=== PATIENT | male | born 1990 | race Caucasian/White ===

== ENCOUNTER 2022-01-25 12:56 | Outpatient (REF) | payer OTHER, SELFPAY ==
--- NOTE | ~2022-01-25 | XR_ITS ---
EXAMINATION: XR KNEE, LEFT CLINICAL INFORMATION: Pain. Injury. Rule out fracture or effusion. COMPARISON: None TECHNIQUE: Four views of the left knee. FINDINGS: Bones and soft tissues are normal. No fracture or joint effusion. Alignment is anatomic. Joint spaces are well maintained. No abnormal soft tissue calcification. XR/XR knee LT 4V IMPRESSION: Normal left knee.
[2022-01-25 13:54] LABS: MANUAL DIFF FLAG NO
[2022-01-25 13:59] LABS: Basophils Percent Auto 0.6 % (0-2); Eosinophils Absolute Auto 0.2 X10*3/uL (0.0-0.4); Eosinophils Percent Auto 2.3 % (0-4); Hematocrit 42.5 % (42.0-52.0); Hemoglobin 14.9 g/dl (14.0-18.0); Imm Gran Abs Auto 0.05 X10*3/uL (0.00-0.03); Imm Gran Pct Auto 0.8 % (0.0-0.4); Lymphocytes Absolute Auto 1.9 X10*3/uL (1.2-4.9); Mean Corpuscular HGB Conc 35.1 g/dl (31.0-36.0); Mean Corpuscular Hemoglobin 30.3 pg (27.0-33.0); Mean Corpuscular Volume 86.6 fL (80.0-98.0); Mean Platelet Volume 8.9 fL (9.4-12.4); Monocytes Absolute Auto 0.4 X10*3/uL (0.1-1.2); Monocytes Percent Auto 6.5 % (2-11); Neutrophils Percent Auto 60.8 % (45-73); Platelet Count 222 X10*3/uL (160-400); Red Blood Count 4.91 X10*6/uL (4.60-5.80); Red Cell Distribution Width 12.1 % (11.0-16.0); White Blood Count 6.6 X10*3/uL (4.8-10.8)
[2022-01-25 14:12] LABS: Alanine Aminotransferase 27 U/L (0-40); Albumin Level 4.4 g/dL (3.5-5.0); Alkaline Phosphatase 92 U/L (39-117); Anion Gap 10 (12-20); Aspartate Amino Transferase 21 U/L (5-37); Bilirubin Total 0.5 mg/dL (0.0-1.0); Blood Urea Nitrogen 18 mg/dL (9-16); Calcium 10.2 mg/dL (8.4-10.2); Carbon Dioxide 29 mmol/L (22-29); Chloride 103 mmol/L (96-108); Cholesterol 220 mg/dL; Estimated Glomerular Filt Rate > 60; Glucose Fasting 99 mg/dL (60-99); HDL Cholesterol 36 mg/dL; LDL Cholesterol Calculated 157 mg/dl; Potassium 4.5 mmol/L (3.3-5.1); Sodium 137 mmol/L (135-145); Triglycerides 135 mg/dL
[2022-01-26 22:37] LABS: Gliadin Deamidated IgA Ab <1.0 U/mL; Gliadin Deamidated IgG Ab <1.0 U/mL; Transglutaminase IgA <1.0 U/mL
== END 2022-01-25 12:57 | disposition home or self-care (01) ==
LOC: HO.HMGCLDS 12:56
PROVIDERS: Visit Provider Internal Medicine
DX: R53.83 Other fatigue (principal)
CPT/HCPCS: 36415; 73564; 80053; 80061; 85025; 86258; 86364

== ENCOUNTER 2022-04-20 10:52 | Day surgery (SDC) | payer OTHER, SELFPAY ==
--- NOTE | 2022-04-16 11:38 | HO.ANESPROP2 ---
Documented by User: Elizabeth Whitfield NP 04/16/22 11:39 HPI - Anesthesia Eval Consult details Narrative: 31yo M for Colonoscopy [facility] Past Medical History Medical History Former smoker Surgical History Surgical History H/O adenoidectomy Hx of appendectomy Social History Social History Advance Directives: No Advance Directives Information Provided: Yes Meds Allergies Allergy/AdvReac Type Severity Reaction Status Date / Time No Known Allergies Allergy Unverified 08/07/20 19:37 [No Known Allergies*] Home Medications Medication Instructions Recorded Confirmed Last Taken Type No Known Home Meds 04/16/22 04/16/22 Unknown History Exam Exam Date and Time: April 16, 2022 1138 Pertinent Lab Results Pertinent Lab Results: Laboratory Tests 01/25/22 01/25/22 13:14 13:14 WBC 6.6 Hgb 14.9 Hct 42.5 Plt Count 222 Sodium 137 Potassium 4.5 Chloride 103 Carbon Dioxide 29 BUN 18 H Creatinine 0.96 Assessment and Plan Assessment Anesthesia Assessment: Chart Reviewed Documented by User: Laverne Lanza MD 04/20/22 11:11 [facility] Past Medical History Medical History Former smoker Surgical History Surgical History H/O adenoidectomy Hx of appendectomy History of Problems with Anesthesia: No Social History Social History Advance Directives: No Advance Directives Information Provided: Yes Meds Allergies Allergy/AdvReac Type Severity Reaction Status Date / Time No Known Allergies Allergy Unverified 08/07/20 19:37 [No Known Allergies*] Home Medications Medication Instructions Recorded Confirmed Last Taken Type No Known Home Meds 04/16/22 04/16/22 Unknown History Exam Airway Mallampati Class: I TM Dist: >3cm Neck ROM: Full Loose/Missing/Broken Teeth: No Heart: RRR Lungs: CTA Assessment and Plan Assessment Anesthesia Assessment: Anesthesia Plan Discussed Final Anesthetic Review History of Problems with Anesthesia: No NPO: Yes ASA Class: II Final Preanesthetic Review: Meds/Allgs Chart Reviewed, Consent Obtained/Reviewed and Anes Risks/Benef Reviewed Patient Risk: Low Procedure Risk: Low Anesthetic Plan Anesthetic Plan: MAC: Disposition: Standard PACU
[2022-04-20 10:57] VITALS: BP 125/81; PULSE 101; RESP 18; TEMP 35.9; O2SAT 96; BMI 31.4
--- NOTE | 2022-04-20 11:06 | MHC.SHP ---
Pre-Procedural Eval Section A Date of Service: 04/20/22 The patient is an INPATIENT: No Changes since office visit: No Cold of Flu in the past 2 weeks, No New Medical Problems, No Changes in Medication and No Patient answered all questions The History & Physical has been completed within 30 days and I have reviewed it.: Yes Section B Chief Complaint: Hemorrhage of anus and rectum,diarrhea Allergies: Allergies Allergy/AdvReac Type Severity Reaction Status Date / Time No Known Allergies Allergy Unverified 08/07/20 19:37 [No Known Allergies*] Plan I have reviewed the history and physical and performed a pertinent physical examination on my patient. No changes have occurred unless specified.
--- NOTE | 2022-04-20 11:48 | P.BOP_ITS ---
Brief Operative Note Date of Service: 04/20/22 Pre-op diagnosis: rectal bleeding, diarrhea Post-op diagnosis: other (normal colonoscopy) Procedure: colonoscopy Surgeon: Puma Haas Anesthesia: MAC Was an Post Anesthesia Room Nurse used for this Procedure?: No Estimated blood loss (mL): 2 Pathology: other (bxs ti and rectum) Condition: stable Disposition: PACU
[2022-04-20 11:50] VITALS: BP 100/54; PULSE 92; RESP 17; TEMP 36.8; O2SAT 96
[2022-04-20 12:06] VITALS: BP 110/70; PULSE 82; RESP 18; TEMP 36.7; O2SAT 97
--- NOTE | 2022-04-20 19:39 | OP_ITS ---
SURGEON: Puma Haas MD INDICATIONS: Rectal bleeding and diarrhea. PREOPERATIVE DIAGNOSIS: POSTOPERATIVE DIAGNOSIS: PROCEDURE PERFORMED: Colonoscopy to the terminal ileum with biopsy. ESTIMATED BLOOD LOSS: COMPLICATIONS: ANESTHESIA: ASSISTANTS: SPECIMENS: MEDICATIONS: Monitored anesthesia care. DESCRIPTION OF PROCEDURE: History and physical were performed. The risks and benefits of the procedure were explained to the patient. Informed consent was obtained. The patient was placed in the left lateral decubitus position. A digital rectal exam was performed and was found to be normal. The Olympus pediatric video colonoscope was introduced into the rectum and advanced to the cecum without difficulty. The cecum was identified by transillumination, palpation, and identification of ileocecal valve. Examination was performed. The scope was removed. He tolerated the procedure well and was returned to recovery area in stable condition. FINDINGS: The terminal ileum was normal. The visualized colonic mucosa was within normal limits without evidence of masses or ulcers. There was no sign of colitis. The mucosa appeared normal. The quality of prep was good. Retroflexed examination did show small internal hemorrhoids. Random biopsies were obtained from the terminal ileum and from the sigmoid. IMPRESSION: Normal colonoscopy. RECOMMENDATION: 1. Follow up as needed. 2. Repeat colonoscopy is recommended every 10 years beginning at age 45 for colon cancer screening purposes. MD PALAK Hansen/SOLOMON / [id number]
== END 2022-04-20 12:20 | disposition home or self-care (01) ==
PROVIDERS: PCP Internal Medicine; Visit Provider Internal Medicine Gastroenterology
PROC: 0DJD8ZZ Inspection of Lower Intestinal Tract, Via Natural or Artificial Opening Endoscopic (ICD-10-PCS; CPT 45378; principal; 2022-04-20 11:50)
DX: K62.5 Hemorrhage of anus and rectum (principal); R19.7 Diarrhea, unspecified; Z87.891 Personal history of nicotine dependence
CPT/HCPCS: 45380; 88305; J2250

== ENCOUNTER 2024-04-20 15:34 | Outpatient (AMB) | payer OTHER, SELFPAY ==
[2024-04-20 15:38] VITALS: BP 110/74; PULSE 110; RESP 14; TEMP 36.6; O2SAT 98; BMI 34.0
--- NOTE | 2024-04-20 15:38 | A.OFFPC_ITS ---
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 Claims Auditor Required: No Accompanied by: Self / Same As Patient Allergies Seasonal Allergies Allergy (Intermediate, Verified 04/20/24 15:59) Itchy Eyes Medication List - Last Reconciled 04/20/24 by Maurilio Roberson CNP fexofenadine 180 mg PO Q24H Tobacco use date assessed: 04/20/24 Dental Screening Dental Screen Date: 04/20/24 Did you have a dental visit in the last 12 months?: Yes Did you have a dental problem in the last 6 months where you did not have access to dental care?: No Was dental information given to patient?: Patient has dentist HPI HPI Comments History of Present Illness Details New patient Prior PCP: Felix Solorzano [place] Last office visit/CPE: About 3 years Acute issue(s): ADHD (inattentive type) -He was on Vyvanse 60mg daily for the pa st few years; was being prescribed by a 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 His last visit with the provider was on 11/04/2023 Anxiety disorder, unspecified -He was on Hydroxyzine 10mg TID prn Chronic neck pain Constant dull neck pain with intermittent with intermittent unprovoked sharp for the past 16 years, worse in the past 7 years; h/o physical therapy 3 years ago was somewhat effective. History of taking muscle relaxers with some improvement. He had an x-ray but did not follow up for result. He takes Ibuprofen as needed without improvement. 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 He has not played drums or guitars lately due to increased pain to his left fingers during play PMHx: None SurgHx: Appendectomy, adenoidectomy FHx: Mom: obesity, depression. Dad: no know history MGM: unknown cancer SocHx: Smokes 2 cigarettes daily and has been smoking on/off for 16 years. Drinks alcohol occasionally. 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 1. Little interest or pleasure in doing things: several days 2. Feeling down, depressed, or hopeless: several days 3. Trouble falling or staying asleep, or sleeping too much: several days 4. Feeling tired or having little energy: nearly every day 5. Poor appetite or overeating: several days 6. Feeling bad about yourself - or that you are a failure or have let yourself or your family down: several days 7. Trouble concentrating on things, such as reading the newspaper or watching television: several days 8. Moving or speaking so slowly that other people could have noticed. Or the opposite - being so fidgety or restless that you have been moving around a lot more than usual: not at all 9. Thoughts that you would be better off or of hurting yourself in some way: not at all Total score: 9 Depression Screening Interpretation: Positive Depression Screening Done: Yes 56415 - PHQ-9 Billing: Yes Source: Developed by Drs. Jace Rizvi, Tatyana Hunt, Fox Canas and colleagues, with an educational dominick from [employer]. Thrive Questionnaire Date Thrive assessed: 04/20/24 I am a: Patient What is your living situation today?: I have a steady place to live Within the past 12 months, did the food you bought not last and you didn't have the money to get more?: Never true Within the past 12 months, did you worry whether your food would run out before you got money to buy more?: Never true Do you have trouble paying for medicines?: No Do you have trouble getting transportation to medical appointments?: No Do you have trouble paying your heating and electricity bill?: No Do you have trouble taking care of your child, family member or friend?: No Do you have trouble with day-to-day activities such as bathing, preparing meals, shopping, managing finances, etc.?: Yes Are you currently unemployed and looking for a job?: No Are you interested in more education?: Yes Please select the resources that you would like help with: Daily support and Education Currently or been in a relationship where the following occur: no concerns reported THRIVE Score: 0 AUDIT C Alcohol Use Questionnaire (AUDIT-C) 1. How often do you have a drink containing alcohol?: Monthly or less 2. How many drinks containing alcohol do you have on a typical day when you are drinking?: 1 or 2 3. How often do you have six or more drinks on one occasion?: Never Total Score: 1 HERMINIA-7 AMB Questionnaire HERMINIA-7 Date HERMINIA - 7 assessed: 04/20/24 Feeling nervous, anxious, or on edge: 1 = Several days Not being able to stop or control worryin = Several days Worrying too much about different things: 2 = More than half the days Trouble relaxin = Nearly every day Being so restless that it is hard to sit still: 0 = Not at all Becoming easily annoyed or irritable: 1 = Several days Feeling afraid as if something awful might happen: 0 = Not at all Total HERMINIA-7 score (0-4 normal; 5-9 mild; 10-14 moderate; 15-21 severe): 8 Source: Developed by Drs. Jace Rizvi, Tatyana Hunt, Fox Canas and colleagues, with an educational dominick from [employer]. HERMINIA-7 Assessment Billing HERMINIA-7 Assessment Tool: HERMINIA-7 Assessment 09947 Review of Systems Const Details: Const Denies chills, Denies fatigue, Denies fever(s), Denies headache(s) and Denies weakness ENT Denies dizziness and Denies headache(s) Card Denies chest pain, Denies lightheadedness, Denies dyspnea and Denies other (Palpitations) Resp Denies cough, Denies dyspnea, Denies wheezing and Denies other ( shortness of breath) GI Denies abdominal pain, Denies melena, Denies hematochezia, Denies change in bowel habits, Denies dyspepsia and Denies nausea Denies hematuria and Denies dysuria Musc Reports neck pain, Reports left hand pain tingling and mumbness, Denies abnormal gait Skin/Breast Denies rash, Denies unusual bruising and Denies wounds Neuro Denies abnormal gait, Denies dizziness, Denies headache(s), Denies memory loss, Denies numbness, Denies Sensory deficit (Neuro), Denies tingling and Denies weakness Psych Denies anxiety, Denies depression, Denies memory loss Endo Denies cold intolerance, Denies fatigue, Denies heat intolerance, Denies polydipsia and Denies polyuria Aller/Immun Denies wheezing Physical exam (Primary Care) Vital Signs: Last Vital Signs Temp 97.8 F 04/20/24 15:38 Pulse 110 H 04/20/24 15:38 Resp 14 04/20/24 15:38 BP 110/74 04/20/24 15:38 Pulse Ox 98 04/20/24 15:38 BMI result Body Mass Index 34.0 Tobacco/Smoking Status: Tobacco use Status Tobacco use date assessed 04/20/24 04/20/24 15:57 Patient Tobacco Use Status Current everyday Tobacco 04/20/24 15:57 Tobacco use type Cigarette 04/20/24 15:57 e-Cigarette/Vaping Use Never Used 04/20/24 15:57 PHQ-9: PHQ-9 Score PHQ-9: Total score 9 04/20/24 18:09 Depression Screening Interpretation: Positive Thrive Assessment: Date of Thrive Assessment Date Thrive assessed 04/20/24 04/20/24 15:57 Currently or been in a relationship where the following occur: no concerns reported Const Other: General: no acute distress and well developed Nutritional Appearance: well nourished Orientation/consciousness: patient oriented x3 HENMT Head: Yes normocephalic and Yes atraumatic Eyes General: appearance normal, both eyes and all related structures Pupils: Equal, round and reactive pupils present EOM: EOMs intact bilaterally Resp Effort & Inspection: normal respiratory effort Auscultation: clear to auscultation bilaterally Cardio Rate: regular rate Rhythm: regular rhythm Heart sounds: S1 normal heart sound present, S2 normal heart sound present, no gallops, no murmurs and no rubs GI Palpation (GI): No Abdominal aortic bruit present, Soft to palpation, nontender, No hepatosplenomegaly present and No Rebound tenderness present Auscultation: normal bowel sounds General: Yes no CVA tenderness Back/Spine/Pelvis Back: no CVA tenderness Cervical Spine: cervical ROM normal and No Cervical spine tenderness Thoracic/Lumbar Spine: thoraco-lumbar ROM normal, No pain with thoraco-lumbar ROM, No thoracic spinal tenderness and No lumbar spinal tenderness Extrem General: Yes normal to inspection, No edema and No calf tenderness Skin General: warm and dry. Normal skin color. Normal skin turgor Lesions: no lesions Rashes: no rashes Trauma: no lacerations or abrasions Wounds: no wounds Nails: normal Neuro General: patient oriented x3, gait normal and no focal neuro deficit Cranial nerves: Yes Equal, round and reactive pupils present Cognition (Neuro): normal cognition Gait exam (Neuro): Normal gait present Sensory Exam: No Sensory deficit (Neuro) Psych Appearance: grossly normal Affect: normal affect Attitude: cooperative Thought process: Normal thought process present Assessment and Plan Assessment & Plan (1) ADHD: Code(s): F90.9 - Attention-deficit hyperactivity disorder, unspecified type Qualifiers: Attention deficit-hyperactivity disorder type: predominantly inattentive Qualified Code(s): F90.0 - Attention-deficit hyperactivity disorder, predominantly inattentive type Plan: He was on Vyvanse 60 mg daily until 11/09/2023 Verified through record he brought from the [place] he attended and mass Pat Will restart Vyvanse 60 mg daily. Advised to take as prescribed. Instructed on the risks, benefits, and potential adverse reaction of the medications Follow-up in 1 month or return sooner with symptoms or concerns Verbalized understanding and agreed with treatment plan (2) Anxiety: Code(s): F41.9 - Anxiety disorder, unspecified Plan: Attributes his anxiety symptoms to ADHD PHQ-9 and HERMINIA-7 scores revealed mild depression and anxiety Hydroxyzine 25 mg 3 times daily as needed ordered. Advised to take as prescribed. Instructed on the risks, benefits, and potential adverse reaction of the medication Follow-up with symptoms or concerns Verbalized understanding and agreed with treatment plan (3) Chronic neck pain: Code(s): M54.2 - Cervicalgia; G89.29 - Other chronic pain Plan: No overt signs of trauma Likely nerve pain Will trial gabapentin 200 mg every night. Advised to take as prescribed. Instructed on the risks, benefits, and potential adverse reaction of the medication X-ray ordered Follow-up with symptoms or concerns Verbalized understanding and agreed with treatment plan (4) Paresthesias in left hand: Code(s): R20.2 - Paresthesia of skin Plan: Chronic constant tingling and intermittent/daily numbness to left 4th and 5th digits No overt signs of trauma or injury. No tenderness to palpation Likely nerve pain associated with next pain Plan as above (5) Laboratory tests ordered as part of a complete physical exam (CPE): Code(s): Z00.00 - Encounter for general adult medical examination without abnormal findings Plan: Fasting labs ordered in preparation of a complete physical exam. Advised to fast for at least 10 hours before getting labs drawn. May drink water Verbalized understanding and agreed with treatment plan. Orders: Orders Lipid Panel 04/20/24 Z00.00 - Encounter for general adult medical examination without abnormal findings UA CC w/rflx Micro + Cult 04/20/24 Z00.00 - Encounter for general adult medical examination without abnormal findings XR cervical spine 2V 04/20/24 G89.29 - Other chronic pain, M54.2 - Cervicalgia Complete Blood Count Auto Diff 04/20/24 Z00.00 - Encounter for general adult medical examination without abnormal findings Comprehensive [place]. Panel Fast 04/20/24 Z00.00 - Encounter for general adult medical examination without abnormal findings TSH reflex Free T4 04/20/24 Z00.00 - Encounter for general adult medical examination without abnormal findings Medications: New lisdexamfetamine (Vyvanse) Partial Fill upon patient request. 60 mg PO QAM 30 days 30 caps 0RF gabapentin 200 mg (2 x 100 mg) PO BEDTIME 30 days 60 caps 0RF hydroxyzine HCl 25 mg PO TID 30 days PRN 90 tabs 1RF anxiety Coding Level of Care Code New Pt Level 4 (13504) Complex EM visit Add On G2211 Diagnoses Attention deficit hyperactivity disorder (ADHD), predominantly inattentive type F90.0 Attention deficit-hyperactivity disorder type: predominantly inattentive Anxiety F41.9 Chronic neck pain M54.2; G89.29 Paresthesias in left hand R20.2 Laboratory tests ordered as part of a complete physical exam (CPE) Z00.00 Additional Codes HERMINIA-7 Assessment Billing - HERMINIA-7 Assessment Tool: HERMINIA-7 Assessment 20120 ([id number])
== END 2024-04-20 16:38 | disposition home or self-care (01) ==
PROVIDERS: Visit Provider Nurse Practitioner Family
DX: F41.9 Anxiety disorder, unspecified (principal); F90.0 Attention-deficit hyperactivity disorder, predominantly inattentive type; M54.2 Cervicalgia; G89.29 Other chronic pain; R20.2 Paresthesia of skin
CPT/HCPCS: 96127; 99204; G2211

== ENCOUNTER 2024-05-09 12:10 | Outpatient (REF) | payer OTHER, SELFPAY ==
--- NOTE | ~2024-05-09 | XR_ITS ---
EXAMINATION: XR CERVICAL SPINE CLINICAL INFORMATION: Chronic neck pain, no trauma. COMPARISON: 02/28/2019. TECHNIQUE: 4 views of the cervical spine. FINDINGS: Straightening of the normal cervical lordosis. Mild multilevel cervical spondylosis with mild loss of disc space height at C6-C7. XR/XR cervical spine 2V IMPRESSION: Mild multilevel cervical spondylosis with mild loss of disc space height at C6-C7.
[2024-05-09 12:34] LABS: MANUAL DIFF FLAG NO
[2024-05-09 12:46] LABS: Appearance Urine Clear; Color Urine Yellow; Glucose Urine UA Negative (Negative); Leukocyte Esterase Urine Negative (Negative); Nitrite Urine Negative (Negative); PH 6.5 (5.0-9.0); Specific Gravity - Urine 1.015 (1.005-1.025); Urine Blood Negative (Negative); Urine Ketones Negative (Negative); Urine Protein Negative (Neg-Trace)
[2024-05-09 12:48] LABS: Basophils Percent Auto 0.6 % (0-2); Eosinophils Absolute Auto 0.2 X10*3/uL (0.0-0.4); Eosinophils Percent Auto 3.3 % (0-4); Hematocrit 43.4 % (42.0-52.0); Hemoglobin 15.3 g/dl (14.0-18.0); Imm Gran Abs Auto 0.03 X10*3/uL (0.00-0.03); Imm Gran Pct Auto 0.5 % (0.0-0.4); Lymphocytes Absolute Auto 2.2 X10*3/uL (1.2-4.9); Lymphocytes Percent Auto 33.5 % (20-40); Mean Corpuscular HGB Conc 35.3 g/dl (31.0-36.0); Mean Corpuscular Hemoglobin 30.3 pg (27.0-33.0); Mean Corpuscular Volume 85.9 fL (80.0-98.0); Mean Platelet Volume 8.6 fL (9.4-12.4); Monocytes Absolute Auto 0.5 X10*3/uL (0.1-1.2); Monocytes Percent Auto 7.8 % (2-11); Neutrophils Absolute Auto 3.6 x10*3/uL (2.0-8.3); Neutrophils Percent Auto 54.3 % (45-73); Platelet Count 255 X10*3/uL (160-400); Red Blood Count 5.05 X10*6/uL (4.60-5.80); Red Cell Distribution Width 11.9 % (11.0-16.0); White Blood Count 6.7 X10*3/uL (4.8-10.8)
[2024-05-09 14:00] LABS: Alanine Aminotransferase 47 U/L (0-40); Albumin Level 4.4 g/dL (3.5-5.0); Alkaline Phosphatase 99 U/L (39-117); Anion Gap 11 (12-20); Aspartate Amino Transferase 29 U/L (5-37); Bilirubin Total 0.4 mg/dL (0.0-1.0); Blood Urea Nitrogen 13 mg/dL (9-16); Carbon Dioxide 26 mmol/L (22-29); Chloride 104 mmol/L (96-108); Cholesterol 257 mg/dL (<200); Estimated Glomerular Filt Rate > 60; Glucose Fasting 100 mg/dL (60-99); HDL Cholesterol 32 mg/dL (>40); LDL Cholesterol Calculated 197 mg/dL (<100); Potassium 5.2 mmol/L (3.3-5.1); Sodium 136 mmol/L (135-145); Total Protein 7.5 g/dL (6.5-8.0); Triglycerides 141 mg/dL (<150)
[2024-05-09 14:09] LABS: TSH reflex Free T4 0.96 uIU/mL (0.32-4.0)
== END 2024-05-09 12:11 | disposition home or self-care (01) ==
LOC: HO.LAB 12:10
PROVIDERS: PCP Nurse Practitioner Family; Visit Provider Nurse Practitioner Family
DX: Z00.00 Encounter for general adult medical examination without abnormal findings (principal); M54.2 Cervicalgia; G89.29 Other chronic pain
CPT/HCPCS: 36415; 72040; 80053; 80061; 81003; 84443; 85025

== ENCOUNTER 2024-05-18 14:51 | Outpatient (AMB) | payer OTHER, SELFPAY ==
[2024-05-18 14:56] VITALS: BP 132/70; PULSE 109; RESP 14; TEMP 36.4; O2SAT 99; BMI 34.2
--- NOTE | 2024-05-18 14:56 | MHC.PC.OV ---
Vital Signs 05/18/24 14:56 Height 6 ft 2 in Weight 266 lb 2 oz BMI 34.2 BP 132/70 Blood Pressure Location Rt brachial Position Sitting Respiration 14 Pulse 109 H Pulse Source Pulse Oximeter Temp 97.6 F Temp Source Temporal Artery Scan Pulse Oximetry (%) 99 Oxygen Delivery Method Room Air Intake Visit Reasons: Full PE, follow up Trouble Tracer Required: No Accompanied by: Self / Same As Patient Allergies Seasonal Allergies Allergy (Intermediate, Verified 05/18/24 15:11) Itchy Eyes Medication List - Last Reconciled 05/18/24 by Maurilio Roberson CNP fexofenadine 180 mg PO Q24H gabapentin 200 mg (2 x 100 mg) PO BEDTIME 30 days hydroxyzine HCl 25 mg PO TID PRN 30 days lisdexamfetamine (Vyvanse) 60 mg PO QAM 30 days Tobacco use date assessed: 05/18/24 Dental Screening Dental Screen Date: 05/18/24 Did you have a dental visit in the last 12 months?: Yes Did you have a dental problem in the last 6 months where you did not have access to dental care?: No Was dental information given to patient?: Patient has dentist HPI HPI Comments History of Present Illness Details 33-year-old male presents for an extended physical exam He has past medical history significant for ADHD (inattentive type), anxiety, chronic neck pain, and Constant tingling and intermittent/daily numbness to left 4th and 5th digits He admits to taking his medications as prescribed without adverse reactions ADHD and anxiety symptoms her managed on current treatment regimen Reports intermittent posterior neck pain with ROM and intermittent tingling and numbness of his left 4th and 5th digits He generally eats healthy but has not been exercising He smokes 2 cigarettes daily and has been smoking for the past 16 years. He drinks alcohol occasionally. 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 1. Little interest or pleasure in doing things: several days 2. Feeling down, depressed, or hopeless: several days 3. Trouble falling or staying asleep, or sleeping too much: nearly every day 4. Feeling tired or having little energy: nearly every day 5. Poor appetite or overeating: more than half the days 6. Feeling bad about yourself - or that you are a failure or have let yourself or your family down: more than half the days 7. Trouble concentrating on things, such as reading the newspaper or watching television: several days 8. Moving or speaking so slowly that other people could have noticed. Or the opposite - being so fidgety or restless that you have been moving around a lot more than usual: several days 9. Thoughts that you would be better off or of hurting yourself in some way: not at all Total score: 14 Depression Screening Interpretation: Positive Depression Screening Done: Yes 87790 - PHQ-9 Billing: Yes Source: Developed by Drs. Jace Rizvi, Tatyana Hunt, Fox Canas and colleagues, with an educational dominick from [employer]. Thrive Questionnaire Date Thrive assessed: 05/18/24 I am a: Patient What is your living situation today?: I have a steady place to live Within the past 12 months, did the food you bought not last and you didn't have the money to get more?: Never true Within the past 12 months, did you worry whether your food would run out before you got money to buy more?: Never true Do you have trouble paying for medicines?: No Do you have trouble getting transportation to medical appointments?: No Do you have trouble paying your heating and electricity bill?: No Do you have trouble taking care of your child, family member or friend?: No Do you have trouble with day-to-day activities such as bathing, preparing meals, shopping, managing finances, etc.?: No Are you currently unemployed and looking for a job?: No Are you interested in more education?: No Please select the resources that you would like help with: None Currently or been in a relationship where the following occur: No concerns reported THRIVE Score: 0 AUDIT C Alcohol Use Questionnaire (AUDIT-C) 1. How often do you have a drink containing alcohol?: 2-4 times a month 2. How many drinks containing alcohol do you have on a typical day when you are drinking?: 1 or 2 3. How often do you have six or more drinks on one occasion?: Never Total Score: 2 HERMINIA-7 AMB Questionnaire HERMINIA-7 Date HERMINIA - 7 assessed: 05/18/24 Feeling nervous, anxious, or on edge: 1 = Several days Not being able to stop or control worryin = Several days Worrying too much about different things: 2 = More than half the days Trouble relaxin = Nearly every day Being so restless that it is hard to sit still: 2 = More than half the days Becoming easily annoyed or irritable: 1 = Several days Feeling afraid as if something awful might happen: 0 = Not at all Total HERMINIA-7 score (0-4 normal; 5-9 mild; 10-14 moderate; 15-21 severe): 10 Source: Developed by Drs. Jace Rizvi, Tatyana Hunt, Fox Canas and colleagues, with an educational dominick from [employer]. HERMINIA-7 Assessment Billing HERMINIA-7 Assessment Tool: HERMINIA-7 Assessment [id number] Review of Systems Const Details: Denies chills, Denies fatigue, Denies fever(s), Denies headache(s) and Denies weakness HEENT Denies change in vision, Denies dizziness, Denies headache(s), Denies hearing loss, Denies nasal congestion, Denies sinus pain, Denies sinus pressure and Denies sore throat Card Denies chest pain, Denies lightheadedness, Denies dyspnea and Denies other (palpitations) Resp Denies cough, Denies dyspnea and Denies wheezing GI Denies abdominal pain, Denies melena, Denies hematochezia, Denies change in bowel habits, Denies dyspepsia and Denies nausea Denies hematuria and Denies dysuria Musc Denies abnormal gait, Denies myalgias, Denies arthralgias, Denies numbness and Denies tingling Skin/Breast Denies rash, Denies unusual bruising and Denies wounds Neuro Denies abnormal gait, Denies dizziness, Denies headache(s), Denies memory loss, Denies numbness, Denies Sensory deficit (Neuro), Denies tingling and Denies weakness Psych Denies anxiety, Denies depression and Denies memory loss Endo Denies cold intolerance, Denies fatigue, Denies heat intolerance, Denies polydipsia and Denies polyuria Brandyn/Lymph Denies easy bleeding and Denies easy bruising Aller/Immun Denies wheezing Physical exam (Primary Care) Vital Signs: Last Vital Signs Temp 97.6 F 05/18/24 14:56 Pulse 109 H 05/18/24 14:56 Resp 14 05/18/24 14:56 BP 132/70 05/18/24 14:56 Pulse Ox 99 05/18/24 14:56 Oxygen Delivery Method Room Air 05/18/24 14:56 BMI result Body Mass Index 34.2 Tobacco/Smoking Status: Tobacco use Status Tobacco use date assessed 04/20/24 04/20/24 15:57 Patient Tobacco Use Status Current everyday Tobacco 04/20/24 15:57 Tobacco use type Cigarette 04/20/24 15:57 e-Cigarette/Vaping Use Never Used 04/20/24 15:57 Depression Screening Interpretation: Positive Thrive Assessment: Date of Thrive Assessment Date Thrive assessed 04/20/24 04/20/24 15:57 Currently or been in a relationship where the following occur: No concerns reported Const Other: General: no acute distress, well developed, alert and awake Nutritional Appearance: well nourished Orientation/consciousness: patient oriented x3 [facility] Head: Yes normocephalic and Yes atraumatic Ears: hearing grossly normal bilaterally and TM's normal bilaterally General nose exam: Normal external nose present and Normal nares present Mouth: Normal oral and palatal mucosa present and moist mucous membranes Teeth and gingiva: dentition normal Throat: Yes oropharynx normal Eyes Pupils: Equal, round and reactive pupils present and Pupil accommodation reflex normal EOM: EOMs intact bilaterally Neck Neck: Yes normal visual inspection, Yes no lymphadenopathy and Yes trachea midline Thyroid: Thyroid normal Carotids: no bruits Lymphatic: no lymphadenopathy noted Chest Chest palpation & inspection: normal inspection of the chest Resp Effort & Inspection: normal respiratory effort Auscultation: clear to auscultation bilaterally Cardio Rate: regular rate Rhythm: regular rhythm Heart sounds: S1 normal heart sound present, S2 normal heart sound present, no gallops, no murmurs and no rubs Bruits: no abdominal aortic bruits and no carotid bruits GI Palpation (GI): No Abdominal aortic bruit present, Soft to palpation, nontender, No hepatosplenomegaly present and No Rebound tenderness present Auscultation: normal bowel sounds General: Yes no CVA tenderness Back/Spine/Pelvis Back: no CVA tenderness Cervical Spine: cervical ROM normal and No Cervical spine tenderness Thoracic/Lumbar Spine: thoraco-lumbar ROM normal, No pain with thoraco-lumbar ROM, No thoracic spinal tenderness and No lumbar spinal tenderness Skin General: warm and dry. Normal skin color. Normal skin turgor Lesions: no lesions Rashes: no rashes Trauma: no lacerations or abrasions Wounds: no wounds Nails: normal Neuro General: patient oriented x3, gait normal and CN's II-XI intact bilaterally Cranial nerves: Yes Equal, round and reactive pupils present Cognition (Neuro): normal cognition Gait exam (Neuro): Normal gait present Motor exam (neuro): 5/5 motor strength present throughout Sensory Exam: No Sensory deficit (Neuro) Deep tendon reflexes (DTR's): Right patellar reflex intensity grade: 2+ and Left patellar reflex intensity grade: 2+ Extrem General: Yes normal to inspection, No edema and No calf tenderness Psych Appearance: grossly normal Affect: normal affect Attitude: cooperative Thought process: Normal thought process present Assessment and Plan Assessment & Plan (1) Normal physical examination, routine: Code(s): Z00.00 - Encounter for general adult medical examination without abnormal findings Plan: No significant physical restrictions or limitations noted Continue current treatment regimen Healthy diet and routine exercise encouraged Advised to get fasting blood work done before his next visit Follow-up in 2 months for ADHD, anxiety, and hypercholesterolemia Return sooner with symptoms or concerns Verbalized understanding and agreed with the plan (2) ADHD: Code(s): F90.9 - Attention-deficit hyperactivity disorder, unspecified type Qualifiers: Attention deficit-hyperactivity disorder type: predominantly inattentive Qualified Code(s): F90.0 - Attention-deficit hyperactivity disorder, predominantly inattentive type Plan: ADHD and anxiety symptoms her managed on current treatment regimen HERMINIA-7 in PHQ-9 scores revealed moderate anxiety and depression respectively Continue current treatment regimen Routine exercise encouraged Follow-up in 2 months or sooner with worsening or new symptoms Verbalized understanding and agreed with the treatment plan (3) Anxiety: Code(s): F41.9 - Anxiety disorder, unspecified Plan: As above (4) Chronic neck pain: Code(s): M54.2 - Cervicalgia; G89.29 - Other chronic pain Plan: Intermittent posterior neck pain with ROM and intermittent tingling and numbness of his left 4th and 5th digits Cervical spine x-ray pending interpretation No tenderness to palpation. No overt injury or trauma Continue to take gabapentin as prescribed May take ibuprofen or Tylenol as needed Warm/cool compresses encouraged Will review x-ray results and make changes as needed May referred to PT or ortho as needed Follow-up with worsening or new symptoms Verbalized understanding and agreed with the treatment plan (5) Chronic pain of left hand: Code(s): M79.642 - Pain in left hand; G89.29 - Other chronic pain Plan: As above (6) Paresthesias in left hand: Code(s): R20.2 - Paresthesia of skin Plan: As above (7) Hypercholesterolemia: Code(s): E78.00 - Pure hypercholesterolemia, unspecified Plan: Recent total cholesterol and LDL levels are elevated, 257 and 197 respectively; HDL level is slightly low, 32 Advised to limit foods high in saturated fat and avoid foods high in trans fat Routine exercise encouraged Advised to fast for 10-12 hours, may drink water only, and get lipid panel blood work done before his next visit Follow-up in 2 months Verbalized understanding and agreed with the plan (8) Elevated fasting glucose: Code(s): R73.01 - Impaired fasting glucose Plan: Recent fasting glucose is slightly elevated, 100 Will repeat fasting glucose and make changes as needed (9) Hyperkalemia: Code(s): E87.5 - Hyperkalemia Plan: Recent potassium level is slightly elevated, 5.2 He admits to consuming 1 banana daily Advised to limit consumption of potassium rich foods, including bananas Will recheck potassium levels and make changes as needed Verbalized understanding and agreed with the plan (10) Smoking: Code(s): F17.200 - Nicotine dependence, unspecified, uncomplicated Plan: He smokes 2 cigarettes daily and has been smoking for the past 16 years. Instructed on the health risks and complications of cigarette smoking and encouraged to quit He declines medication treatment for smoking cessation and notes that he will quit without medication Advised that he may contact his PCP if he changes mind on medication treatment Verbalized understanding and agreed with the treatment plan (11) Obesity (BMI 30-39.9): Code(s): E66.9 - Obesity, unspecified Plan: He currently weighs 266 lb, BMI is 34.2 He generally eats healthy but has not been exercising Healthy diet and routine exercise encouraged Declines referral to dietitian/hotel lobby concierge and notes that he will continue to make healthy dietary changes and start routine physical exercise Informed that he may notify his PCP if he changes his mind on dietitian/hotel lobby concierge referral Verbalized understanding and agreed with the plan Orders: Orders Glucose Fasting Today R73.01 - Impaired fasting glucose Lipid Panel 2 Months E78.00 - Pure hypercholesterolemia, unspecified Potassium Today E87.5 - Hyperkalemia Coding Level of Care Code Est Pt Level 4 (28308) Est Pt Prev Care 18-39y(55478) Diagnoses Normal physical examination, routine Z00.00 Attention deficit hyperactivity disorder (ADHD), predominantly inattentive type F90.0 Attention deficit-hyperactivity disorder type: predominantly inattentive Anxiety F41.9 Chronic neck pain M54.2; G89.29 Chronic pain of left hand M79.642; G89.29 Paresthesias in left hand R20.2 Hypercholesterolemia E78.00 Elevated fasting glucose R73.01 Hyperkalemia E87.5 Smoking F17.200 Obesity (BMI 30-39.9) E66.9 Additional Codes HERMINIA-7 Assessment Billing - HERMINIA-7 Assessment Tool: HERMINIA-7 Assessment [id number] ([id number])
== END 2024-05-18 15:35 | disposition home or self-care (01) ==
PROVIDERS: Visit Provider Nurse Practitioner Family
DX: Z00.00 Encounter for general adult medical examination without abnormal findings (principal); F90.0 Attention-deficit hyperactivity disorder, predominantly inattentive type; F41.9 Anxiety disorder, unspecified; M54.2 Cervicalgia; M79.642 Pain in left hand; R20.2 Paresthesia of skin; E78.00 Pure hypercholesterolemia, unspecified; R73.01 Impaired fasting glucose; E87.5 Hyperkalemia; F17.200 Nicotine dependence, unspecified, uncomplicated; E66.9 Obesity, unspecified
CPT/HCPCS: 99395

== ENCOUNTER 2024-08-01 15:54 | Outpatient (AMB) | payer OTHER, SELFPAY ==
--- NOTE | 2024-08-01 15:57 | MHC.PC.OV ---
Vital Signs 08/01/24 16:03 Height 6 ft 2 in Weight 262 lb 8 oz BMI 33.7 BP 128/84 Blood Pressure Location Lt brachial Position Sitting Respiration 16 Pulse 94 Pulse Source Pulse Oximeter Temp 98.2 F Temp Source Oral Pulse Oximetry (%) 97 Oxygen Delivery Method Room Air Intake Visit Reasons: 2m follow up anxiety Intake Note: patient here for 2 month follow up. Supervisor Files Required: No Allergies Seasonal Allergies Allergy (Intermediate, Verified 08/01/24 16:01) Itchy Eyes Tobacco use date assessed: 08/01/24 Dental Screening Dental Screen Date: 08/01/24 Did you have a dental visit in the last 12 months?: Yes Did you have a dental problem in the last 6 months where you did not have access to dental care?: No Was dental information given to patient?: Patient has dentist HPI HPI Comments History of Present Illness Details 33-year-old male presents for ADHD, anxiety, depression, and hypercholesterolemia follow up He admits to taking his medications as prescribed without adverse reactions He notes controlled ADHD, anxiety, and depressive symptoms. He has been sleeping well. No loss of appetite or weight loss He reports continued neck pain which is dull at baseline but intensifies with certain head or neck movements. He started PT, which he thinks intensifies his symptoms. He tried tylenol and ibuprofen without improvement. Recent x-ray of the cervical spine revealed the following: XR/XR cervical spine 2V IMPRESSION: Mild multilevel cervical spondylosis with mild loss of disc space height at C6-C7. 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 1. Little interest or pleasure in doing things: several days 2. Feeling down, depressed, or hopeless: several days 3. Trouble falling or staying asleep, or sleeping too much: more than half the days 4. Feeling tired or having little energy: more than half the days 5. Poor appetite or overeating: not at all 6. Feeling bad about yourself - or that you are a failure or have let yourself or your family down: not at all 7. Trouble concentrating on things, such as reading the newspaper or watching television: several days 8. Moving or speaking so slowly that other people could have noticed. Or the opposite - being so fidgety or restless that you have been moving around a lot more than usual: not at all 9. Thoughts that you would be better off or of hurting yourself in some way: not at all Total score: 7 Depression Screening Interpretation: Positive Depression Screening Follow-up: Existing condition Depression Screening Done: Yes 77585 - PHQ-9 Billing: Yes Source: Developed by Drs. Jace Rizvi, Tatyana Hunt, Fox Canas and colleagues, with an educational dominick from [employer]. Thrive Questionnaire Date Thrive assessed: 05/18/24 HERMINIA-7 AMB Questionnaire HERMINIA-7 Date HERMINIA - 7 assessed: 08/01/24 Feeling nervous, anxious, or on edge: 1 = Several days Not being able to stop or control worryin = Not at all Worrying too much about different things: 1 = Several days Trouble relaxin = More than half the days Being so restless that it is hard to sit still: 0 = Not at all Becoming easily annoyed or irritable: 0 = Not at all Feeling afraid as if something awful might happen: 0 = Not at all Total HERMINIA-7 score (0-4 normal; 5-9 mild; 10-14 moderate; 15-21 severe): 4 Source: Developed by Drs. Jace Rizvi, Tatyana Hunt, Fox Canas and colleagues, with an educational dominick from [employer]. EHRMINIA-7 Assessment Billing HERMINIA-7 Assessment Tool: HERMINIA-7 Assessment 17531 Review of Systems Const Details: Const Denies chills, Denies fatigue, Denies fever(s), Denies headache(s) and Denies weakness ENT Denies dizziness and Denies headache(s) Card Denies chest pain, Denies lightheadedness, Denies dyspnea and Denies other (Palpitations) Resp Denies cough, Denies dyspnea, Denies wheezing and Denies other ( shortness of breath) GI Denies abdominal pain, Denies melena, Denies hematochezia, Denies change in bowel habits, Denies dyspepsia and Denies nausea Denies hematuria and Denies dysuria Musc Reports as per HPI Skin/Breast Denies rash, Denies unusual bruising and Denies wounds Neuro Denies abnormal gait, Denies dizziness, Denies headache(s), Denies memory loss, Denies numbness, Denies Sensory deficit (Neuro), Denies tingling and Denies weakness Psych Denies anxiety, Denies depression, Denies memory loss Endo Denies cold intolerance, Denies fatigue, Denies heat intolerance, Denies polydipsia and Denies polyuria Aller/Immun Denies wheezing Physical exam (Primary Care) Vital Signs: Last Vital Signs Temp 98.2 F 08/01/24 16:03 Pulse 94 08/01/24 16:03 Resp 16 08/01/24 16:03 BP 128/84 08/01/24 16:03 Pulse Ox 97 08/01/24 16:03 Oxygen Delivery Method Room Air 08/01/24 16:03 BMI result Body Mass Index 33.7 Tobacco/Smoking Status: Tobacco use Status Tobacco use date assessed 05/18/24 08/01/24 15:58 Patient Tobacco Use Status Current everyday Tobacco 08/01/24 15:58 Tobacco use type Cigarette 08/01/24 15:58 e-Cigarette/Vaping Use Former Use 08/01/24 15:58 Depression Screening Interpretation: Positive Depression Screening Follow-up: Existing condition Thrive Assessment: Date of Thrive Assessment Date Thrive assessed 05/18/24 08/01/24 15:58 Const Other: General: no acute distress and well developed Nutritional Appearance: well nourished Orientation/consciousness: patient oriented x3 HENMT Head: Yes normocephalic and Yes atraumatic Eyes General: appearance normal, both eyes and all related structures Pupils: Equal, round and reactive pupils present EOM: EOMs intact bilaterally Resp Effort & Inspection: normal respiratory effort Auscultation: clear to auscultation bilaterally Cardio Rate: regular rate Rhythm: regular rhythm Heart sounds: S1 normal heart sound present, S2 normal heart sound present, no gallops, no murmurs and no rubs GI Palpation (GI): No Abdominal aortic bruit present, Soft to palpation, nontender, No hepatosplenomegaly present and No Rebound tenderness present Auscultation: normal bowel sounds General: Yes no CVA tenderness Back/Spine/Pelvis Back: no CVA tenderness Cervical Spine: cervical ROM normal and No Cervical spine tenderness Thoracic/Lumbar Spine: thoraco-lumbar ROM normal, No pain with thoraco-lumbar ROM, No thoracic spinal tenderness and No lumbar spinal tenderness Extrem General: Yes normal to inspection, No edema and No calf tenderness Skin General: warm and dry. Normal skin color. Normal skin turgor Neuro General: patient oriented x3, gait normal and no focal neuro deficit Cranial nerves: Yes Equal, round and reactive pupils present Cognition (Neuro): normal cognition Gait exam (Neuro): Normal gait present Sensory Exam: No Sensory deficit (Neuro) Psych Appearance: grossly normal Affect: normal affect Attitude: cooperative Thought process: Normal thought process present Assessment and Plan Assessment & Plan (1) ADHD: Code(s): F90.9 - Attention-deficit hyperactivity disorder, unspecified type Qualifiers: Attention deficit-hyperactivity disorder type: predominantly inattentive Qualified Code(s): F90.0 - Attention-deficit hyperactivity disorder, predominantly inattentive type Plan: Controlled ADHD and anxiety symptoms HERMINIA-7 score is normal Continue current treatment regimen Routine exercise encourage Encouraged to get fasting blood work done before his next visit Follow up in 3 months or sooner with symptoms or concerns Verbalized understanding and agreed with the plan (2) Anxiety: Code(s): F41.9 - Anxiety disorder, unspecified Plan: Plan as above (3) Chronic neck pain: Code(s): M54.2 - Cervicalgia; G89.29 - Other chronic pain Plan: Reports continued next pain which intensifies with certain head/neck movements Recent cervical spine x-ray revealed some degenerative changes and mild disc narrowing Cervical spine non tender to palpation Naproxen 500mg daily as needed and Cyclobenzaprine 10 mg twice daily as needed ordered. Advised to take the medications as prescribed; take Naproxen with food. Instructed on the risks, benefits, and potential adverse reactions of the medications. Warm/cool compresses encouraged Referred to [facility] ortho Follow up with worsening or new symptoms Verbalized understanding and agreed with the plan Orders: Referrals Orthopedics Referral G89.29 - Other chronic pain, M54.2 - Cervicalgia Medications: New naproxen 500 mg PO BID PRN 30 tabs 1RF pain cyclobenzaprine 10 mg PO TID PRN 30 tabs 1RF muscle spasm cyclobenzaprine 10 mg PO BID PRN 30 tabs 1RF muscle spasm Coding Level of Care Code Est Pt Level 4 (38249) Diagnoses Attention deficit hyperactivity disorder (ADHD), predominantly inattentive type F90.0 Attention deficit-hyperactivity disorder type: predominantly inattentive Anxiety F41.9 Chronic neck pain M54.2; G89.29 Additional Codes HERMINIA-7 Assessment Billing - HERMINIA-7 Assessment Tool: HERMINIA-7 Assessment 68502 ([id number])
[2024-08-01 16:03] VITALS: BP 128/84; PULSE 94; RESP 16; TEMP 36.8; O2SAT 97; BMI 33.7
== END 2024-08-01 16:25 | disposition home or self-care (01) ==
PROVIDERS: PCP Nurse Practitioner Family; Visit Provider Nurse Practitioner Family
DX: M54.2 Cervicalgia (principal); F90.0 Attention-deficit hyperactivity disorder, predominantly inattentive type; F41.9 Anxiety disorder, unspecified; G89.29 Other chronic pain
CPT/HCPCS: 99214

== ENCOUNTER 2024-10-12 08:34 | Outpatient (AMB) | payer OTHER, SELFPAY ==
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
== END 2024-10-12 09:50 | disposition home or self-care (01) ==
PROVIDERS: PCP Nurse Practitioner Family; Visit Provider Physical Medicine & Rehabilitation
DX: M54.12 Radiculopathy, cervical region (principal); M79.18 Myalgia, other site; R20.0 Anesthesia of skin
CPT/HCPCS: 99203

== ENCOUNTER → 2024-10-12 08:34 | Outpatient (BNVA) | payer OTHER, SELFPAY | PROVIDERS: PCP Nurse Practitioner Family; Visit Provider Physical Medicine & Rehabilitation | DX: M54.12 Radiculopathy, cervical region (principal); M79.18 Myalgia, other site; R20.0 Anesthesia of skin | CPT/HCPCS: 99202 ==

== ENCOUNTER 2024-11-19 10:10 | Inpatient (IN) | payer OTHER, SELFPAY ==
--- NOTE | 2024-11-19 10:13 | ECG_ITS ---
Test Reason : HALLUCINATIONS Blood Pressure : / mmHG Vent. Rate : 112 BPM Atrial Rate : 112 BPM P-R Int : 184 ms QRS Dur : 100 ms QT Int : 320 ms P-R-T Axes : 060 056 027 degrees QTc Int : 436 ms Sinus tachycardia Otherwise normal ECG No previous ECGs available Referred By: Jenna aDmon Electronically Signed By:ARIEL BARBER MD
--- NOTE | 2024-11-19 10:13 | ED_ITS ---
HPI - General Adult General Chief complaint: Psychiatric Symptoms Stated complaint: S12,FEELS EVERYONE OUT TO KILL HIM,HALLUCINATIONS Time Seen by Provider: 11/19/24 10:13 Source: patient, family (patient's mother provided additional history and confirmed the history provided by the patient.) and EMS Mode of arrival: EMS Limitations: no limitations History of Present Illness ED Provider: Jenna Damon PA-C HPI narrative: Patient is a 33 year old assigned male at with a history of ADHD and anxiety presenting to the emergency department today with increased paranoia. Patient states that over at least the last day he has felt very paranoid like someone is after him and / or going to hurt or kill him. Patient denies any dizziness, lightheadedness, abdominal pain, nausea, vomiting, fever, chills, blurry vision, double vision, loss of vision, chest pain, difficulty breathing, shortness of breath, back pain, night sweats, pain with urination, increased urinary frequency, increased urinary urgency, blood in his urine or stool, syncope or a near syncopal episode, recent trauma or falls, bowel incontinence, bladder incontinence, or any other complaints at this time. Relieving factors: none Exacerbating factors: none Associated symptoms: denies other symptoms Treatments prior to arrival: none Related Data Previous Rx's ?Medication ?Instructions ?Recorded cyclobenzaprine 10 mg tablet 10 mg PO BID PRN muscle spasm #30 08/01/24 tabs naproxen 500 mg tablet 500 mg PO BID PRN pain #30 tabs 08/01/24 hydroxyzine HCl 25 mg tablet 25 mg PO TID PRN for anxiety #270 10/16/24 tabs lisdexamfetamine 60 mg capsule 60 mg PO QAM 30 days #30 caps 10/22/24 (Vyvanse) Allergies Allergy/AdvReac Type Severity Reaction Status Date / Time Seasonal Allergies Allergy Intermediate Itchy Eyes Verified 11/19/24 11:19 Review of Systems 2 Constitutional: Constitutional: Reports no additional constitutional complaints, Denies chills, Denies fever(s) and Denies night sweats Eyes: Eyes: Reports no additional eye complaints, Denies blurry vision, Denies change in vision, Denies diplopia, Denies eye discharge, Denies loss of vision and Denies eye pain ENT: Denies dizziness Cardiovascular: Cardiovascular: Reports no additional cardiovascular complaints, Denies chest pain, Denies lightheadedness, Denies Loss of Consciousness and Denies dyspnea Respiratory: Respiratory: Reports no additional respiratory complaints and Denies dyspnea Gastrointestinal: Gastrointestinal: Reports no additional gastrointestinal complaints, Denies abdominal pain, Denies melena, Denies hematochezia, Denies change in bowel habits and Denies change in stool character Genitourinary: Genitourinary: Reports no additional male genitourinary complaints, Denies hematuria, Denies oliguria, Denies difficulty urinating, Denies dysuria, Denies urinary frequency, Denies urinary hesitancy, Denies urinary incontinence and Denies urinary urgency Musculoskeletal: Musculoskeletal: Reports no additional musculoskeletal complaints, Denies numbness and Denies tingling Neurologic: Denies dizziness, Denies loss of vision, Denies numbness and Denies tingling Psychiatric: Psychiatric: Reports no additional psychiatric complaints and Reports paranoia Endocrine: Endocrine: Reports no additional endocrine complaints Hematologic/Lymphatic: Hematologic/Lymphatic: Reports no additional hematologic/lymphatic complaints Allergic/Immunologic: Allergic/Immunologic: Reports no additional allergic/immunologic complaints [facility] Past Medical History Attestation statement: The following information was validated with the patient. (all information validated with the patient's mother) Source: old records reviewed, obtained from family (patient's mother provided additional history and confirmed the history provided by the patient.) and nursing notes reviewed Medical History ADHD Former smoker Surgical History H/O adenoidectomy Hx of appendectomy Family History Family History Other Mental health disorder Social History Social History Housing: Apartment Alcohol intake: current Alcohol intake frequency: a few times a week Alcohol type: beer and hard liquor Patient Tobacco Use Status: Current everyday Tobacco user Tobacco use type: Cigarette Cigarettes Per Day: 2 Years Smoked: 16 Smoked in Last 30 Days: Yes e-Cigarette/Vaping Use: Former Use Use of substances other than those prescribed or required for medical reasons: Yes Substance Use Type: Marijuana Substance Use Frequency: Occasionally Advance Directives: No Advance Directives Information Provided: Yes Do you have a plan to hurt others: No Plan service: No Current occupational status: employed 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 Cognitive needs: No Hearing needs: No Vision needs: No Physical Exam ED Vital Signs: Vital Signs - 24 hr 11/19/24 10:30 Temperature 98.8 F Pulse Rate 121 H Respiratory Rate 16 Blood Pressure 151/70 H Pulse Oximetry 96 Oxygen Delivery Method Room Air BMI result Body Mass Index 33.4 Const General: cooperative, no acute distress, alert and awake Nutritional Appearance: well nourished Orientation/consciousness: patient oriented x3 Limitations: no limitations HENMT Head: Yes normal to inspection and Yes atraumatic Ears: hearing grossly normal bilaterally and external ears normal General nose exam: Normal external nose present, no nasal discharge noted and no epistaxis Face and sinus: Yes normal facial exam, No abrasion and No laceration Mouth: Normal oral and palatal mucosa present, no drooling and no muffled voice Eyes General: appearance normal, both eyes and all related structures Periorbital: periorbital findings normal Eyelids: Yes eyelids normal Conjunctivae: conjunctivae normal Pupils: Equal, round and reactive pupils present EOM: EOMs intact bilaterally Neck Neck: Yes normal visual inspection, Yes full ROM and Yes no lymphadenopathy Chest Chest palpation & inspection: normal inspection of the chest Resp Effort & Inspection: normal respiratory effort and able to speak in complete sentences GI Inspection: Yes normal to inspection Neuro General: patient oriented x3 and moves all extremities Cranial nerves: Yes Equal, round and reactive pupils present Cognition (Neuro): normal cognition Extrem General: Yes normal to inspection, Yes full ROM and Yes capillary refill normal Psych Appearance: grossly normal Mental Status: mental status grossly normal Affect: Animated affect present and Anxious affect present Attitude: cooperative Thought process: Illogical thought process present Medications Administered Discontinued Medications Generic Name Dose Route Start Last Admin Trade Name Freq PRN Reason Stop Dose Admin Lorazepam 2 mg 11/19/24 10:38 11/19/24 11:03 Lorazepam 1 Mg Tablet PO 11/19/24 10:39 2 mg ONCE ONE Administration Medical Decision Making Medical Decision Making [facility] Narrative: Patient is a 33 year old assigned male at with a history of ADHD and anxiety presenting to the emergency department today with increased paranoia. Patient's physical exam was as noted in the physical exam portion of this note. Patient's blood work showed a mildly elevated WBC count of 12.6 but were otherwise unremarkable. Patient's urine showed no acute process. Patient's EKG showed sinus tachycardia but otherwise unremarkable. I explained my physical exam findings as well as all test results to the patient. I answered all questions asked by the patient. Patient's disposition is pending CARE team evaluation. Differential Diagnosis Differential Diagnoses: The differential diagnosis associated with the presentation includes Paranoia Anxiety Admission/Observation Consideration of admission/observation: Escalation of care including admission/observation considered Patient's disposition will be determined after CARE Team evaluation. Lab Data [facility] Lab Attestation statement: I reviewed the patient's lab results. My interpretation of these results are in the [facility] Rationale portion of this note. 11/19/24 10:50 11/19/24 10:50 Labs: Lab Results 11/19/24 11/19/24 Range/Units 10:49 10:50 WBC 12.6 H (4.8-10.8) X10*3/uL RBC 4.82 (4.60-5.80) X10*6/uL Hgb 14.9 (14.0-18.0) g/dl Hct 41.2 L (42.0-52.0) % MCV 85.5 (80.0-98.0) fL MCH 30.9 (27.0-33.0) pg MCHC 36.2 H (31.0-36.0) g/dl RDW 11.9 (11.0-16.0) % Plt Count 271 (160-400) X10*3/uL MPV 8.4 L (9.4-12.4) fL Immature Gran % (Auto) 1.0 H (0.0-0.4) % Neut % (Auto) 82.0 H (45-73) % Lymph % (Auto) 9.8 L (20-40) % [place] % (Auto) 6.5 (2-11) % Eos % (Auto) 0.4 (0-4) % Baso % (Auto) 0.3 (0-2) % Lymph # (Auto) 1.2 (1.2-4.9) X10*3/uL [place] # (Auto) 0.8 (0.1-1.2) X10*3/uL Eos # (Auto) 0.1 (0.0-0.4) X10*3/uL Baso # (Auto) 0.0 (0.0-0.2) X10*3/uL Abs Immat Gran (auto) 0.13 H (0.00-0.03) X10*3/uL Absolute Neuts (auto) 10.3 H (2.0-8.3) x10*3/uL Absolute Nucleated RBC 0.000 (0.0-0.012) X10*3/uL Nucleated RBC % (auto) 0.0 (0.0-0.2) /100WBC Sodium 134 L (135-145) mmol/L Potassium 5.0 (3.3-5.1) mmol/L Chloride 99 (96-108) mmol/L Carbon Dioxide 25 (22-29) mmol/L Anion Gap 15 (12-20) BUN 17 H (9-16) mg/dL Creatinine 1.02 (0.5-1.4) mg/dL Estim Creat Clear Calc TNP Estimated GFR > 60 Random Glucose 140 H (60-115) mg/dL Calcium 9.9 (8.4-10.2) mg/dL Total Bilirubin 0.3 (0.0-1.0) mg/dL AST 37 (5-37) U/L ALT 59 H (0-40) U/L Alkaline Phosphatase 97 (39-117) U/L Total Protein 7.5 (6.5-8.0) g/dL Albumin 4.6 (3.5-5.0) g/dL Urine Color Yellow Urine Appearance Clear Urine pH 5.5 (5.0-9.0) Ur Specific [place] 1.020 (1.005-1.025) Urine Protein Negative (Neg-Trace) mg/dL Urine Glucose (UA) Negative (Negative) mg/dL Urine Ketones Negative (Negative) mg/dL Urine Blood Trace H (Negative) Urine Nitrite Negative (Negative) Ur Leukocyte Esterase Negative (Negative) Urine RBC 0-2 (0-2) /HPF Urine WBC 0-5 (0-5) /HPF Ur Squamous Epith Cells 0-2 (0-2) /HPF Urine Bacteria None Seen (None Seen) Hyaline Casts 3-5 (0-2) /LPF Salicylates < 5.0 L (15-30) mg/dL Urine Opiates Screen Not Detected (Not Detect) Ur Buprenorphine Scrn Not Detected (Not Detect) ng/mL Ur Oxycodone Screen Not Detected (Not Detect) ng/mL Urine Methadone Screen Not Detected (Not Detect) ng/mL Urine Fentanyl Screen Not Detected (Not Detect) Acetaminophen < 3 (<30) mcg/mL Ur Barbiturates Screen Not Detected (Not Detect) Ur Phencyclidine Scrn Not Detected (Not Detect) Ur Amphetamines Screen POSITIVE H (Not Detect) U Benzodiazepines Scrn Not Detected (Not Detect) Urine Cocaine Screen Not Detected (Not Detect) U Marijuana (THC) Screen POSITIVE H (Not Detect) Ethyl Alcohol < 10 mg/dL COVID-19 (ADARSH) Negative (Negative) COVID-19 Clin Com See Note Independent Interpretation I performed an independent interpretation of an: EKG Interpretation: Vent. Rate: 112 BPM Atrial Rate: 112 BPM P-R Int: 184 ms QRS Dur: 100 ms QT Int: 320 ms P-R-T Axes: 060 056 027 degrees QTc Int: 436 ms Sinus tachycardia Otherwise normal ECG No previous ECGs available DD/ 1041 Independent Historian Clinical information obtained from an independent historian. History obtained from or confirmed by: EMS (EMS provided additional history and confirmed the history provided by the patient.) Critical Care Time Critical Care Time Critical Care Time: Yes Total Critical Care Time: 32 Attestation: I spent 32 minutes of Critical Care Time with this patient. This does not include time spent on separately reported billable procedures. Discharge Plan Discharge Clinical Impression: Acute paranoia, Anxiety Patient Disposition: Still a Patient Prescriptions: No Action hydroxyzine HCl 25 mg tablet 25 mg PO TID PRN (Reason: for anxiety) Qty: 270 1RF lisdexamfetamine [Vyvanse] 60 mg capsule 60 mg PO QAM 30 Days Qty: 30 0RF Rx Instructions: Partial Fill upon patient request. naproxen 500 mg tablet 500 mg PO BID PRN (Reason: pain) Qty: 30 1RF cyclobenzaprine 10 mg tablet 10 mg PO BID PRN (Reason: muscle spasm) Qty: 30 1RF Interventions: [place]-Suicide Risk Severity Scale Last Done: 11/19/24 13:27 Print Language: Macanese
[2024-11-19 10:17] VITALS: PULSE 90; O2SAT 97
--- NOTE | 2024-11-19 10:20 | PC.NURSE ---
EMS presented copy of sect 12 paperwork for patient, paper is not pink. ems states they do not have pink sect 12 papers in [place]
[2024-11-19 10:30] VITALS: BP 151/70; PULSE 121; RESP 16; TEMP 37.1; O2SAT 96; BMI 33.4
[2024-11-19 10:58] LABS: MANUAL DIFF FLAG NO
[2024-11-19 11:01] LABS: Basophils Percent Auto 0.3 % (0-2); Eosinophils Absolute Auto 0.1 X10*3/uL (0.0-0.4); Eosinophils Percent Auto 0.4 % (0-4); Hematocrit 41.2 % (42.0-52.0); Hemoglobin 14.9 g/dl (14.0-18.0); Imm Gran Abs Auto 0.13 X10*3/uL (0.00-0.03); Lymphocytes Absolute Auto 1.2 X10*3/uL (1.2-4.9); Lymphocytes Percent Auto 9.8 % (20-40); Mean Corpuscular HGB Conc 36.2 g/dl (31.0-36.0); Mean Corpuscular Hemoglobin 30.9 pg (27.0-33.0); Mean Corpuscular Volume 85.5 fL (80.0-98.0); Mean Platelet Volume 8.4 fL (9.4-12.4); Monocytes Absolute Auto 0.8 X10*3/uL (0.1-1.2); Monocytes Percent Auto 6.5 % (2-11); Neutrophils Absolute Auto 10.3 x10*3/uL (2.0-8.3); Platelet Count 271 X10*3/uL (160-400); Red Blood Count 4.82 X10*6/uL (4.60-5.80); Red Cell Distribution Width 11.9 % (11.0-16.0); White Blood Count 12.6 X10*3/uL (4.8-10.8)
[2024-11-19] MEDS: LORazepam 1 MG TABLET 2 MG PO (11:03)
[2024-11-19 11:05] LABS: Appearance Urine Clear; Color Urine Yellow; Glucose Urine UA Negative (Negative); Leukocyte Esterase Urine Negative (Negative); Nitrite Urine Negative (Negative); PH 5.5 (5.0-9.0); UMIC TRIGGER UA YES; Urine Blood Trace (Negative); Urine Ketones Negative (Negative); Urine Protein Negative (Neg-Trace)
[2024-11-19 11:08] LABS: Bacteria Urine None Seen (None Seen); RBC Urine 0-2 /HPF (0-2); Squamous Epithelial Cell Urine 0-2 /HPF (0-2); WBC Urine 0-5 /HPF (0-5)
[2024-11-19 11:15] LABS: Amphetamine Screen Urine POSITIVE (Not Detect); Barbiturates, Urine Not Detected (Not Detect); Benzodiazepines Screen Urine Not Detected (Not Detect); Buprenorphine Scr Not Detected (Not Detect); Cannabinoid Screen Urine POSITIVE (Not Detect); Cocaine Screen Urine Not Detected (Not Detect); Fentanyl, urine Not Detected (Not Detect); Methadone Screen, Urine Not Detected (Not Detect); Opiate Screen Urine Not Detected (Not Detect); Oxycodone Screen Urine Not Detected (Not Detect); Phencyclidine Screen Urine Not Detected (Not Detect)
[2024-11-19 11:18] LABS: Acetaminophen LAB < 3 mcg/mL (<30); Alanine Aminotransferase 59 U/L (0-40); Albumin Level 4.6 g/dL (3.5-5.0); Alkaline Phosphatase 97 U/L (39-117); Anion Gap 15 (12-20); Aspartate Amino Transferase 37 U/L (5-37); Bilirubin Total 0.3 mg/dL (0.0-1.0); Blood Urea Nitrogen 17 mg/dL (9-16); Calcium 9.9 mg/dL (8.4-10.2); Carbon Dioxide 25 mmol/L (22-29); Chloride 99 mmol/L (96-108); Estimated Glomerular Filt Rate > 60; Ethanol < 10 mg/dL; Glucose Random 140 mg/dL (60-115); Salicylate < 5.0 mg/dL (15-30); Sodium 134 mmol/L (135-145); Total Protein 7.5 g/dL (6.5-8.0)
[2024-11-19 11:28] LABS: COVID-19 Test Negative (Negative); IDNOW Serial# 55D5AD1C
--- OUTSIDE RECORDS SUMMARY | 2024-11-19 11:45 | XMS_ITS | Patient Health Record ---
Author Organization [facility] Address [address] [place] [address] Care Team Providers Care Nuisance Wildlife Specialist Name Role Phone Lizbeth GIBSON, Paul Primary Care Provider Puma Masterson Jr Unavailable ALLERGIES Allergen (clinical drug ingredient) Drug/Non Drug Allergy documented on EMR Reaction Allergy Type Onset Date Status Pollen Pollen Unknown Allergy Active REASON FOR REFERRAL No Information SOCIAL HISTORY Tobacco Use: Social History Observation Description Date Details (start date - stop date) Former Smoker NA - NA Sex Assigned At : Social History Observation Description Sex Assigned At Unknown Tobacco Use/Smoking Question Answer Notes Patient is a former smoker How long has it been since you last smoked? 1-3 months Alcohol Screen Question Answer Notes Did you have a drink contain ing alcohol in the past year? Yes How often did you have a dri nk containing alcohol in the past year? 2 to 4 times a month (2 points) How many drinks did you have on a typical day when you were drinking in the past year? 1 or 2 drinks (0 point) How often did you have 6 or more drinks on one occasion in the past year? Never (0 point) Points 2 Interpretation Negative PROBLEMS Problem Type ICD Code Onset Dates Problem Status W/U Status Risk SNOMED Code Notes Problem Diarrhea, unspecified type (R19.7) Active confirmed 23393681 Problem Rectal bleeding (K62.5) Active confirmed 24946448 PLAN OF TREATMENT Future Test Test Name Order Date COLONOSCOPY 04/01/2022 Insurance Providers Payer Name Payer Address Payer Phone Subscriber Number Group Number Insured Name Patient Relationship to Insured Coverage Start Date Coverage End Date [facility] [address] [address] [place], [place] [phone] [id number] LUBNA AHN Self - patient is the insured MEDICAID OF [facility] [address] [place] [address] [phone] [id number] LUBNA AHN Self - patient is the insured MEDICAL (GENERAL) HISTORY Medical History History ICD Code Denies [place],DM,CVA,Lung disease,renal dise ase Surgical History Surgery Date(Month/Year) appendectomy adenoidectomy
--- NOTE | 2024-11-19 13:08 | PC.NURSE ---
Assumed care of patient at 1230. Patient calm currently, OOB ambulating to bathroom with steady gait. Continue with plan of care for Care team
--- NOTE | 2024-11-19 13:54 | PC.NURSE ---
Patient reports AH telling him to harm himself, but patient does not want to harm himself or others, and has no plan.
[2024-11-19] MEDS: OLANZapine 2.5 MG TABLET PO (16:18)
--- NOTE | 2024-11-19 18:01 | PC.NURSE ---
One time dose of Zyprexa given, patient currently sleeping at this time.
--- NOTE | 2024-11-19 18:45 | PHA.MEDREC ---
Addendum entered by Sophia Arrieta [facility] 11/19/24 18:48: REVIEWED Original Note: Pharmacy Consult ? Medication Reconciliation Pharmacy has reviewed the medication reconciliation done by nursing. Claims match med list.
[2024-11-20 00:16] VITALS: BP 129/84; PULSE 86; RESP 16; TEMP 36.9; O2SAT 97
[2024-11-20] MEDS: OLANZapine 5 MG TABLET PO (02:04)
[2024-11-20] MEDS: LORazepam 1 MG TABLET PO (02:05)
--- NOTE | 2024-11-20 12:21 | PC.NURSE ---
in to visit with patient permission.
[2024-11-20 13:20] VITALS: BP 126/87; PULSE 115; RESP 18; TEMP 36.7; O2SAT 96
--- NOTE | 2024-11-20 13:44 | PC.NURSE ---
Girlfriend at bedside
[2024-11-20 16:26] LABS: Alanine Aminotransferase 51 U/L (0-40); Albumin Level 4.7 g/dL (3.5-5.0); Alkaline Phosphatase 104 U/L (39-117); Anion Gap 11 (12-20); Aspartate Amino Transferase 29 U/L (5-37); Bilirubin Total 0.3 mg/dL (0.0-1.0); Blood Urea Nitrogen 19 mg/dL (9-16); Calcium 10.3 mg/dL (8.4-10.2); Carbon Dioxide 29 mmol/L (22-29); Chloride 105 mmol/L (96-108); Estimated Glomerular Filt Rate > 60; Glucose Random 108 mg/dL (60-115); Potassium 4.6 mmol/L (3.3-5.1); Sodium 140 mmol/L (135-145); Total Protein 7.8 g/dL (6.5-8.0)
[2024-11-20 16:47] VITALS: BMI 30.2
--- NOTE | 2024-11-20 17:01 | PC.ADMIT ---
Addendum entered by Valorie Whitman RN 11/20/24 18:45: Reports recent use of alcohol, for approximately 1 week, 3-4 drinks daily. Original Note: Nursing admission note: 33 year old male DX: Unspecified Schizophrenia. Signed conditional voluntary for admission, followed by 3 day notice. Referred for admission by CARE team. [facility] [place] [facility] [place] the request of the police after his mother contacted the police due to concern that he was going to harm himself and is not at baseline functioning. Patient reported that when the police arrived he had a knife next to his bed and reported being increasingly paranoid the night before that someone was going to break into his home. Patient engaged easily, A+O x4. Calm and cooperative with admission process. Pleasant on approach. Denies depression or anxiety at this time. Reports social anxiety, denies SI/HI. Full range of affect. Reports energy is good , motivation is average . Denies racing thought or confusion at this time. Reports feeling foggy, not that bad right now . Reports recent weird psychotic episode. Feeling as though people were going to kill me, or I had to kill myself . States at times he feels like voices are speaking through me and arguing with myself . At times experiences VH when falling asleep . Reports he experienced this maybe 40-50 times in last 7 years. States he believes poor sleep contributed to most recent disturbance in perception. Denies A/V hallucinations at this time. TOX screen positive for amphetamine and cannabis. States he uses tincture of cannabis oil, has been prescribed Vyvanse by PCP. Reports neck pain has affected his ability to sleep, has MRI scheduled for Tuesday. Patient oriented to unit, placed on unit safety checks. See nursing assessment, crisis evaluation for complete details.
[2024-11-20 17:35] VITALS: BP 115/73; PULSE 90; RESP 18; TEMP 2.7; TEMP 36.8; O2SAT 97
[2024-11-20] MEDS: Nicotine Polacrilex 2 MG GUM 4 MG BUCCAL (18:31)
[2024-11-20 19:25] VITALS: BP 144/90; PULSE 102; RESP 18; TEMP 36.7; O2SAT 95
[2024-11-20] MEDS: Acetaminophen 325 MG TABLET 650 MG PO (22:26)
[2024-11-20] MEDS: hydrOXYzine HCL 50 MG TABLET PO (22:48)
[2024-11-21 07:45] VITALS: BP 140/89; PULSE 85; RESP 14; TEMP 36.4; O2SAT 98
[2024-11-21 08:09] LABS: Cholesterol 249 mg/dL (<200); HDL Cholesterol 42 mg/dL (>40); LDL Cholesterol Calculated 164 mg/dL (<100); Triglycerides 215 mg/dL (<150)
[2024-11-21] MEDS: Nicotine 21 MG PATCH.TD24 TRANSDERMA (08:43)
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
[2024-11-21] MEDS: Acetaminophen 325 MG TABLET 650 MG PO (19:04)
[2024-11-21 19:58] VITALS: BP 131/84; PULSE 87; RESP 18; TEMP 36.9; O2SAT 97
[2024-11-21] MEDS: QUEtiapine Fumarate 50 MG TABLET PO (20:15)
[2024-11-21] MEDS: traZODone HCL 50 MG TABLET PO (20:21)
[2024-11-22] MEDS: Acetaminophen 325 MG TABLET 650 MG PO ×2 (06:35→18:51)
[2024-11-22 07:45] VITALS: BP 134/71; PULSE 68; RESP 14; TEMP 36.7; O2SAT 98
[2024-11-22] MEDS: Nicotine 21 MG PATCH.TD24 TRANSDERMA (09:05)
[2024-11-22 10:00] VITALS: BMI 32.3
--- NOTE | 2024-11-22 13:51 | MHC.RECOVRN ---
Met with pt on M3 after consult placed to Addiction Medicine for pt interested in non AA recovery supports. Pt awake, alert, easily engages in conversation. Reports history of binge drinking, most recently had approx 20 drinks daily x 1 week. Had a combination of wine, beer, and liquor. Pt reports he has a history of alcohol use daily prior to marriage. Reports he drinks when his is away, most recently she was in [place], because she does not like when he drinks. Typically, pt reports a binge every couple of months. Pt reports he has difficulty stopping once he has started. Discussed recovery supports and resources, including inpatient and outpatient treatment. Pt has not received treatment for alcohol use in the past. Reports an IOP when he was younger due to psilocybin mushroom use. Pt possibly interested in naltrexone, discussed the [facility]. Pt plans to think about it and call the office for an appt or present as a walk in. Pt interested in speaking with a call or contact centre coach, plan for cross country and track and field coach to meet with pt on Tuesday if pt is still here or call pt to follow up. Pt provided with written resources as well as t/w contact information if needed. Denies questions or concerns at this time.
--- NOTE | 2024-11-22 16:30 | P.PNPSI_ITS ---
Subjective Subjective Date of Service: 11/22/24 Reason For Visit: psychotic episode Subjective Notes: Boss Warning (Patient was given explicit boss warning) and 3 Day Healthcare Proxy: No Guardianship: No Medical Problems Affecting Mental Status: No Interim History: The patient is a 33-year-old male history of ADD history of some degree of past paranoia on stimulants who has been having some difficulty with neck pain insomnia. The patient did not traveled with his over the holiday secondary to pain insomnia and drank a significant amount of alcohol had taken a Vyvanse earlier in the day 60 mg and had also taken a marijuana tincture to help with pain. The patient is prone to hypnagogic hallucinations he states but on that day had experience with depersonalization and felt like he was getting some spiritual command in some way that he was not a good enough person and should harm himself. He did not act on this he denies any ongoing auditory hallucination. He has had an experience when in school and on stimulants regularly where he was fearful that people could read his mind briefly. Denies treatment antipsychotic. He does describe low self-esteem denies any ongoing issues related to self-harm or intrusive thoughts of suicide. Patient did take Seroquel last night but felt hung over did not like how he felt Review of Systems No acute concerns I did review with the patient that he has elevated cholesterol and triglycerides He does complain of ongoing neck pain Medical Review of Systems: unchanged Mental Status Exam Mental Status Exam Patient Appearance: Well Grooomed Patient Orientation: Person, Place, Time and Situation Level of Consciousness: Awake Patient Behavior: Appropriate, Cooperative and Good Eye Contact Behavior Comments: not particularly pressured speech Mood Description: Calm and Apprehensive Affect Description: Appropriate Patient Cognition Impaired: No Ability to Follow Directions: Good Speech Pattern: Clear Hallucinations: None Delusions: Paranoid Ideation (?) Perceptual Disturbances: Derealization (wonder if this is closer to his experience) Thought Process: Intact and Goal Oriented Thought Content: positive for Intact and positive for Linear Depressive Symptoms: Insomnia, Muscle Tension, Difficulty Sleeping, Muscle Pain, Difficulty Concentrating and Back Pain (neck) Judgement: Fair Judgement and Insight: Patient was able to take in information to not use stimulants and avoidance of marijuana products. He does accept that he has issues related to alcohol- related cravings Diagnostics Vital Signs (24Hr): Vital Signs - 24 hr 11/21/24 19:58 11/22/24 07:45 Temperature 98.4 F 98.0 F Pulse Rate 87 68 Respiratory Rate 18 14 Blood Pressure 131/84 134/71 Pulse Oximetry 97 98 Oxygen Delivery Method Room Air Room Air BMI result Body Mass Index 30.2 Labs 11/19/24 10:50 11/20/24 15:54 Labs: Laboratory Results - last 48 hr 11/21/24 07:45 Triglycerides 215 H Cholesterol 249 H LDL Cholesterol, Calc 164 H HDL Cholesterol 42 Medications Medications Current Medications Acetaminophen (Acetaminophen 325 Mg Tablet) 650 mg PO Q6H PRN PRN Reason: Headache/Pain Mild Scale (1-3) Last Admin: 11/22/24 06:35 Dose: 650 mg Al Hydroxide/Mg Hydroxide (Magnesium Hydrox/Alum Hydrox 30 Ml Oral.Susp) 30 ml PO Q6H PRN PRN Reason: Heartburn/Nausea Hydroxyzine HCl (Hydroxyzine Hcl 25 Mg Tablet) 25 mg PO Q6H PRN PRN Reason: Anxiety Hydroxyzine HCl (Hydroxyzine Hcl 50 Mg Tablet) 50 mg PO BEDTIME MRX1 PRN PRN Reason: insomnia Last Admin: 11/20/24 22:48 Dose: 50 mg Magnesium Hydroxide (Milk Of Magnesia 30 Ml Oral.Susp) 30 ml PO DAILY PRN PRN Reason: Constipation Nicotine (Nicotine 21 Mg Patch.Td24) 21 mg TRANSDERMA DAILY JIMMY Last Admin: 11/22/24 09:05 Dose: 21 mg Nicotine Polacrilex (Nicotine Polacrilex 2 Mg Gum) 4 mg BUCCAL Q2H PRN PRN Reason: Nicotine Cravings Last Admin: 11/20/24 18:31 Dose: 4 mg Olanzapine (Olanzapine 2.5 Mg Tablet) 2.5 mg PO BEDTIME JIMMY Olanzapine (Olanzapine 2.5 Mg Tablet) 2.5 mg PO DAILY PRN PRN Reason: Psychosis Trazodone HCl (Trazodone Hcl 50 Mg Tablet) 50 mg PO BEDTIME MRX1 PRN PRN Reason: Insomnia Last Admin: 11/21/24 20:21 Dose: 50 mg Allergies Allergies Allergy/AdvReac Type Severity Reaction Status Date / Time Seasonal Allergies Allergy Intermediate Itchy Eyes Verified 11/19/24 11:19 Assessment & Plan Assessment & Plan (1) Brief reactive psychosis: Status: Acute Code(s): F23 - Brief psychotic disorder (2) Anxiety: Status: Acute Code(s): F41.9 - Anxiety disorder, unspecified (3) Cervical radiculitis: Status: Acute Code(s): M54.12 - Radiculopathy, cervical region Plan 11/21/24 33 yo with period of insomnia/neck pain and xs alcohol use to sleep presents with hyperspiritual experience- derealization and paranoid thinking- who seems a tad better after 2 nights of sleep - does not have long hx of prodromal illness- though could use therapy and further evaluation follow up Bizarre presentation needing continued hospitalization to observe Suggested he try seroquel 50mg at hs- for now while in hospital- olanzapine seems xs risk to weight for patient- Also pt requested addiction consult around his binge drinking and is hoping he can still get MRI tuesday- he would like dc tuesday as he is hoping to return to work at new job Tuesday. 11/22/2024 Above reviewed patient understands toxic effects of insomnia question of sleep disorder binge drinking disorder and brief psychotic episode in relationship to combination of amphetamines alcohol and marijuana. Would benefit from addiction consult avoid use of stimulants avoid marijuana avoid alcohol use. Patient is hoping to return to work shortly he does appear to have generally clear but this does not appear to be his only experience. Start olanzapine 2.5 mg at bedtime if needs ongoing treatment would re-evaluate given weight gain issues with olanzapine unless 1 was able to obtain lybalvi Consider discharge 11/23/2024 with follow-up Patient educated on: diagnosis, medication risk/benefits, substance abuse and medical condition Informed Consent: understands and further education needed Reason for continued inpatient stay Substantial Risk for: inability to function Time Spent With Patient Time: Total time managing care of this patient today ____ minutes.
[2024-11-22 20:00] VITALS: BP 117/54; PULSE 107; RESP 18; TEMP 36.6; O2SAT 96
[2024-11-22] MEDS: OLANZapine 2.5 MG TABLET PO (20:46)
[2024-11-22] MEDS: hydrOXYzine HCL 25 MG TABLET PO (20:46)
[2024-11-22] MEDS: hydrOXYzine HCL 50 MG TABLET PO (23:07)
[2024-11-23 08:00] VITALS: BP 124/67; PULSE 70; RESP 14; TEMP 36.8; O2SAT 98
--- NOTE | 2024-11-23 09:17 | P.PNPSI_ITS ---
Subjective Subjective Reason For Visit: psychotic episode Diagnostics Vital Signs (24Hr): Vital Signs - 24 hr 11/22/24 20:00 11/23/24 08:00 Temperature 97.8 F 98.2 F Pulse Rate 107 H 70 Respiratory Rate 18 14 Blood Pressure 117/54 L 124/67 Pulse Oximetry 96 98 Oxygen Delivery Method Room Air Room Air BMI result Body Mass Index 32.3 Labs 11/19/24 10:50 11/20/24 15:54 Medications Medications Current Medications Acetaminophen (Acetaminophen 325 Mg Tablet) 650 mg PO Q6H PRN PRN Reason: Headache/Pain Mild Scale (1-3) Last Admin: 11/22/24 18:51 Dose: 650 mg Al Hydroxide/Mg Hydroxide (Magnesium Hydrox/Alum Hydrox 30 Ml Oral.Susp) 30 ml PO Q6H PRN PRN Reason: Heartburn/Nausea Hydroxyzine HCl (Hydroxyzine Hcl 25 Mg Tablet) 25 mg PO Q6H PRN PRN Reason: Anxiety Last Admin: 11/22/24 20:46 Dose: 25 mg Hydroxyzine HCl (Hydroxyzine Hcl 50 Mg Tablet) 50 mg PO BEDTIME MRX1 PRN PRN Reason: insomnia Last Admin: 11/22/24 23:07 Dose: 50 mg Magnesium Hydroxide (Milk Of Magnesia 30 Ml Oral.Susp) 30 ml PO DAILY PRN PRN Reason: Constipation Nicotine (Nicotine 21 Mg Patch.Td24) 21 mg TRANSDERMA DAILY [facility] Last Admin: 11/22/24 09:05 Dose: 21 mg Nicotine Polacrilex (Nicotine Polacrilex 2 Mg Gum) 4 mg BUCCAL Q2H PRN PRN Reason: Nicotine Cravings Last Admin: 11/20/24 18:31 Dose: 4 mg Olanzapine (Olanzapine 2.5 Mg Tablet) 2.5 mg PO BEDTIME JIMMY Last Admin: 11/22/24 20:46 Dose: 2.5 mg Olanzapine (Olanzapine 2.5 Mg Tablet) 2.5 mg PO DAILY PRN PRN Reason: Psychosis Trazodone HCl (Trazodone Hcl 50 Mg Tablet) 50 mg PO BEDTIME MRX1 PRN PRN Reason: Insomnia Last Admin: 11/21/24 20:21 Dose: 50 mg Allergies Allergies Allergy/AdvReac Type Severity Reaction Status Date / Time Seasonal Allergies Allergy Intermediate Itchy Eyes Verified 11/19/24 11:19 Assessment & Plan Assessment & Plan (1) Brief reactive psychosis: Status: Acute Code(s): F23 - Brief psychotic disorder (2) Anxiety: Status: Acute Code(s): F41.9 - Anxiety disorder, unspecified (3) Cervical radiculitis: Status: Acute Code(s): M54.12 - Radiculopathy, cervical region Plan 11/21/24 33 yo with period of insomnia/neck pain and xs alcohol use to sleep presents with hyperspiritual experience- derealization and paranoid thinking- who seems a tad better after 2 nights of sleep - does not have long hx of prodromal illness- though could use therapy and further evaluation follow up Bizarre presentation needing continued hospitalization to observe Suggested he try seroquel 50mg at hs- for now while in hospital- olanzapine seems xs risk to weight for patient- Also pt requested addiction consult around his binge drinking and is hoping he can still get MRI tuesday- he would like dc tuesday as he is hoping to return to work at new job Tuesday. 11/22/2024 Above reviewed patient understands toxic effects of insomnia question of sleep disorder binge drinking disorder and brief psychotic episode in relationship to combination of amphetamines alcohol and marijuana. Would benefit from addiction consult avoid use of stimulants avoid marijuana avoid alcohol use. Patient is hoping to return to work shortly he does appear to have generally clear but this does not appear to be his only experience. Start olanzapine 2.5 mg at bedtime if needs ongoing treatment would re-evaluate given weight gain issues with olanzapine unless 1 was able to obtain lybalvi Consider discharge 11/23/2024 with follow-up Time Spent With Patient Time: Total time managing care of this patient today ____ minutes.
[2024-11-23] MEDS: Nicotine 21 MG PATCH.TD24 TRANSDERMA (09:57)
[2024-11-23] MEDS: Acetaminophen 325 MG TABLET 650 MG PO (10:09)
--- NOTE | 2024-11-23 11:52 | PM.PSYDC ---
DS: Providers Provider Date of Service: 11/23/24 Date of admission: 11/20/24 12:32 Date of discharge: 11/23/24 Primary care physician: Maurilio Roberson CNP Attending physician on admission: Reena Cochran Consults: 11/21/24 16:06 Addiction Medicine Routine Consulting Provider: Addiction Covering Reason for consultation: looking for non aa supports around binge drinking Has provider been notified: Yes Attending physician on discharge: Yoandy Lin Discharging clinician: Avelina Tyler DS: Diagnosis Discharge Diagnosis (1) Brief reactive psychosis: Status: Acute (2) Anxiety: Status: Acute (3) Cervical radiculitis: Status: Acute DS: Medications Discharge Medications Home Medications: Previous Rx's ?Medication ?Instructions ?Recorded hydroxyzine HCl 25 mg tablet 25 mg PO TID PRN for anxiety #270 10/16/24 tabs benztropine 0.5 mg tablet 0.5 mg PO DAILY PRN extrapyramidal 11/23/24 effects/symptoms 30 days #30 tabs olanzapine 2.5 mg tablet 2.5 mg PO DAILY PRN Psychosis 30 11/23/24 days #30 tabs Mental Status Exam Mental Status Exam Narrative: Pt is alert and oriented; behavior is cooperative and calm; dressed in casual attire; mood is described as good ; eye contact appropriate; Speech is normal rate, volume and not pressured; thought process is organized and goal directed; Thought content is on tx; denies SI/HI/AH/VH. Data Data Completed and Pending Completed studies during hospitalization [Text1]: 11/19/24 11/19/24 11/20/24 10:49 10:50 15:54 WBC 12.6 H RBC 4.82 Hgb 14.9 Hct 41.2 L MCV 85.5 MCH 30.9 MCHC 36.2 H RDW 11.9 Plt Count 271 MPV 8.4 L Immature Gran % (Auto) 1.0 H Neut % (Auto) 82.0 H Lymph % (Auto) 9.8 L [place] % (Auto) 6.5 Eos % (Auto) 0.4 Baso % (Auto) 0.3 Lymph # (Auto) 1.2 [place] # (Auto) 0.8 Eos # (Auto) 0.1 Baso # (Auto) 0.0 Abs Immat Gran (auto) 0.13 H Absolute Neuts (auto) 10.3 H Absolute Nucleated RBC 0.000 Nucleated RBC % (auto) 0.0 Hold Purple Top Sodium 134 L 140 Potassium 5.0 4.6 Chloride 99 105 Carbon Dioxide 25 29 Anion Gap 15 11 L BUN 17 H 19 H Creatinine 1.02 1.08 Estim Creat Clear Calc TNP 134.0 Estimated GFR > 60 > 60 Random Glucose 140 H 108 Calcium 9.9 10.3 H Total Bilirubin 0.3 0.3 AST 37 29 ALT 59 H 51 H Alkaline Phosphatase 97 104 Total Protein 7.5 7.8 Albumin 4.6 4.7 Triglycerides Cholesterol LDL Cholesterol, Calc HDL Cholesterol Urine Color Yellow Urine Appearance Clear Urine pH 5.5 Ur Specific [place] 1.020 Urine Protein Negative Urine Glucose (UA) Negative Urine Ketones Negative Urine Blood Trace H Urine Nitrite Negative Ur Leukocyte Esterase Negative Urine RBC 0-2 Urine WBC 0-5 Ur Squamous Epith Cells 0-2 Urine Bacteria None Seen Hyaline Casts 3-5 Salicylates < 5.0 L Urine Opiates Screen Not Detected Ur Buprenorphine Scrn Not Detected Ur Oxycodone Screen Not Detected Urine Methadone Screen Not Detected Urine Fentanyl Screen Not Detected Acetaminophen < 3 Ur Barbiturates Screen Not Detected Ur Phencyclidine Scrn Not Detected Ur Amphetamines Screen POSITIVE H U Benzodiazepines Scrn Not Detected Urine Cocaine Screen Not Detected U Marijuana (THC) Screen POSITIVE H Ethyl Alcohol < 10 COVID-19 ([facility]) Negative COVID-19 Clin Com See Note 11/20/24 11/21/24 15:57 07:45 WBC RBC Hgb Hct MCV MCH MCHC RDW Plt Count MPV Immature Gran % (Auto) Neut % (Auto) Lymph % (Auto) [place] % (Auto) Eos % (Auto) Baso % (Auto) Lymph # (Auto) [place] # (Auto) Eos # (Auto) Baso # (Auto) Abs Immat Gran (auto) Absolute Neuts (auto) Absolute Nucleated RBC Nucleated RBC % (auto) Hold Purple Top SEE NOTE Sodium Potassium Chloride Carbon Dioxide Anion Gap BUN Creatinine Estim Creat Clear Calc Estimated GFR Random Glucose Calcium Total Bilirubin AST ALT Alkaline Phosphatase Total Protein Albumin Triglycerides 215 H Cholesterol 249 H LDL Cholesterol, Calc 164 H HDL Cholesterol 42 Urine Color Urine Appearance Urine pH Ur Specific [place] Urine Protein Urine Glucose (UA) Urine Ketones Urine Blood Urine Nitrite Ur Leukocyte Esterase Urine RBC Urine WBC Ur Squamous Epith Cells Urine Bacteria Hyaline Casts Salicylates Urine Opiates Screen Ur Buprenorphine Scrn Ur Oxycodone Screen Urine Methadone Screen Urine Fentanyl Screen Acetaminophen Ur Barbiturates Screen Ur Phencyclidine Scrn Ur Amphetamines Screen U Benzodiazepines Scrn Urine Cocaine Screen U Marijuana (THC) Screen Ethyl Alcohol COVID-19 ([facility]) COVID-19 Clin Com DS: Summary Hospital Course Hospital Course: 33 yo patient describes brief psychotic episode after days of drinking self to sleep due to neck pain and taking vyvanse and mj tincture x1 day prior to admission- which exacerbated his sleepless condition and confused mentation- reported some PI and psychosis- where he thought voices where speeding through him and felt he was having a spiritual experience- his mother called police as he was sleeping with a knife near his bed and some report of threat to hurt himself- That list day prior to admission reports he was up late (after vyvanse) and didn't sleep felt like a waking dream /bad trip -unreal feeling. Says he has felt bad in past and had some passive si but no concrete feeling- But this time had spiritual voice telling him to kill himself wasn't a voice -felt more like a dream. 33 yo with period of insomnia/neck pain and xs alcohol use to sleep presents with hyperspiritual experience- derealization and paranoid thinking- who seems a tad better after 2 nights of sleep - does not have long hx of prodromal illness- though could use therapy and further evaluation follow up Bizarre presentation needing continued hospitalization to observe Suggested he try seroquel 50mg at hs- for now while in hospital- olanzapine seems xs risk to weight for patient- Also pt requested addiction consult around his binge drinking and is hoping he can still get MRI tuesday- he would like dc tuesday as he is hoping to return to work at new job Tuesday. Above reviewed patient understands toxic effects of insomnia question of sleep disorder binge drinking disorder and brief psychotic episode in relationship to combination of amphetamines alcohol and marijuana. Would benefit from addiction consult avoid use of stimulants avoid marijuana avoid alcohol use. Patient is hoping to return to work shortly he does appear to have generally clear but this does not appear to be his only experience. Start olanzapine 2.5 mg at bedtime if needs ongoing treatment would re-evaluate given weight gain issues with olanzapine unless 1 was able to obtain lybalvi Consider discharge 11/23/2024 with follow-up. Patient reports feeling good and ready to return home ; he is looking forward to returning to work on Tuesday. denies SI/HI/VH/AH. Patient reports he plans on following up outpatient providers. Status at Discharge Cognitive/behavioral status at discharge: Patient was interviewed prior to discharge and found to be fully oriented and without SI or HI. Patient has insight and demonstrates good judgment in terms of wanting to pursue treatment. Patient has a safety plan that includes presenting to the closest ER or calling 911 if feeling unsafe. Functional status at discharge: independent ambulation Overall status at discharge: patient is back to baseline Time Spent with Patient Time attestation: Total time managing care of this patient today _20___ minutes. Time spent: Less than 30 minutes Discharge Plan Discharge Anticipated Discharge Date/Time: 11/23/24 15:00 Patient Disposition: Home, Self-Care Discharge Diagnosis: Brief psychosis, HERMINIA, ADHD Referrals: Aleah Tucker (Therapy) [Other] - 11/29/24 11:00 am (IN OFFICE APPOINTMENT) Laverne Franco (Psychiatry) [Other] - 12/27/24 11:20 am (TELEHEALTH APPOINTMENT -Psychiatric Evaluation ) Laverne Franco (Psychiatry) [Other] - 01/23/25 10:00 am (TELEHEALTH APPOINTMENT -Medication Management ) Maurilio Roberson, CORI [Primary Care Provider] - 1 Week (Your Primary Care Physician will be contacting you directly with your follow up appt information.) Discharge Medications: New benztropine 0.5 mg tablet 0.5 mg PO DAILY PRN (Reason: extrapyramidal effects/symptoms) 30 Days Qty: 30 0RF olanzapine 2.5 mg Tablet 2.5 mg PO DAILY PRN (Reason: Psychosis) 30 Days Qty: 30 0RF Continued hydroxyzine HCl 25 mg tablet 25 mg PO TID PRN (Reason: for anxiety) Qty: 270 1RF Discontinued lisdexamfetamine [Vyvanse] 60 mg capsule 60 mg PO QAM 30 Days Qty: 30 0RF Rx Instructions: Partial Fill upon patient request. Discharge Orders: Discharge Order (Routine); Ordered 11/23/24 Ordered By: Avelina Tyler Diet: Regular diet Activity on Discharge: As tolerated Stand Alone Forms: Patient Portal Discharge page, Community Support Print Language: [place] Care Plan Goals: Maintain mood and safe behaviors Take medications as prescribed Practice coping skills Continue with outpatient providers and reach out to them as needed Health Concerns: Mood stability and behaviors Plan of Treatment: Follow up with your PCP, psychiatric provider and other outpatient providers regarding above concerns Take medications as prescribed Assessment: Patient was interviewed prior to discharge and found to be fully oriented and without SI or HI. Patient has insight and demonstrates good judgment in terms of wanting to pursue treatment. Patient has a safety plan that includes presenting to the closest ER or calling 911 if feeling unsafe.
== END 2024-11-23 15:48 | disposition home or self-care (01) | DRG 751 ==
LOC: HO.ED 14:30 → HO.PADLT16 11-20 12:40
PROVIDERS: Physician Assistant Medical; Admitting Provider Registered Nurse; Emergency Provider Emergency Medicine; PCP Nurse Practitioner Family; Responsible Provider Registered Nurse; Visit Provider Psychiatry & Neurology Psychiatry
DX: F23 Brief psychotic disorder (principal); F17.210 Nicotine dependence, cigarettes, uncomplicated; F41.9 Anxiety disorder, unspecified; Z71.6 Tobacco abuse counseling; M54.12 Radiculopathy, cervical region; Z20.822 Contact with and (suspected) exposure to COVID-19
CPT/HCPCS: 36415; 80053; 80061; 80143; 80179; 80307; 81001; 85025; 87635; 93005; 99285

== ENCOUNTER → 2024-11-19 10:13 | Outpatient (BNV) | payer OTHER, SELFPAY | PROVIDERS: Emergency Provider Emergency Medicine; PCP Nurse Practitioner Family; Visit Provider Internal Medicine Cardiovascular Disease | DX: R00.0 Tachycardia, unspecified (principal) | CPT/HCPCS: 93010 ==

== ENCOUNTER → 2024-11-20 12:32 | Outpatient (BNV) | payer OTHER, SELFPAY | PROVIDERS: Admitting Provider Registered Nurse; Emergency Provider Emergency Medicine; PCP Nurse Practitioner Family; Responsible Provider Registered Nurse; Visit Provider Registered Nurse | DX: F23 Brief psychotic disorder (principal); F41.9 Anxiety disorder, unspecified; M54.12 Radiculopathy, cervical region | CPT/HCPCS: 99238 ==

== ENCOUNTER → 2024-11-20 12:32 | Outpatient (BNV) | payer OTHER, SELFPAY | PROVIDERS: Admitting Provider Registered Nurse; Emergency Provider Emergency Medicine; PCP Nurse Practitioner Family; Visit Provider Psychiatry & Neurology Psychiatry | DX: F23 Brief psychotic disorder (principal); F41.9 Anxiety disorder, unspecified; M54.12 Radiculopathy, cervical region | CPT/HCPCS: 99232 ==

== ENCOUNTER → 2024-11-24 14:25 | Outpatient (BNV) | payer OTHER, SELFPAY | PROVIDERS: PCP Nurse Practitioner Family; Visit Provider Radiology Diagnostic Radiology | DX: M54.12 Radiculopathy, cervical region (principal) | CPT/HCPCS: 72141 ==

== ENCOUNTER 2024-11-24 14:27 | Outpatient (REF) | payer OTHER, SELFPAY ==
--- NOTE | ~2024-11-24 | MR_ITS ---
CLINICAL HISTORY: M54.12 - Radiculopathy, cervical region MR cervical spine without gadolinium Comparison: DX/SR - XR CERVICAL SPINE 2V - 05/09/24 12:47 EDT Findings: Visualized intracranial contents are unremarkable. Soft tissues of the neck are normal. Cervical cord normal size and signal. Vertebral alignment is within normal limits. No acute fractures or pathologic bone lesions. C2-C3:No significant canal or foraminal stenosis. C3-C4:No significant canal or foraminal stenosis. C4-C5:No significant canal or foraminal stenosis. C5-C6: Mild facet and uncovertebral hypertrophy. Mild diffuse disc bulge. Mild canal stenosis. Moderate bilateral foraminal stenosis. C6-C7: Mild diffuse disc bulge. Mild facet and uncovertebral hypertrophy bilaterally. Moderate to severe foraminal stenosis bilaterally with mild C7 nerve root compression. Mild canal stenosis. C7-T1:No significant canal or foraminal stenosis. IMPRESSION: 1. Mild lower cervical disc and facet disease as well as uncovertebral hypertrophy. 2. Mild multilevel canal stenoses. 3. Multilevel foraminal stenoses, worst at C6-C7 where there is associated intraforaminal nerve root compression. Correlation with clinical symptoms is recommended to assess relevance of these findings. This document has been electronically signed by: Dian Boewn MD on 11/26/2024 18:00:18
== END 2024-11-24 14:28 | disposition home or self-care (01) ==
LOC: HO.MRI 14:27
PROVIDERS: PCP Nurse Practitioner Family; Visit Provider Physical Medicine & Rehabilitation
DX: M54.12 Radiculopathy, cervical region (principal); R20.0 Anesthesia of skin
CPT/HCPCS: 72141

== ENCOUNTER 2024-11-29 15:28 | Outpatient (REF) | payer OTHER, SELFPAY ==
--- NOTE | 2024-11-29 15:31 | EMG_ITS ---
Chief complaint: Neck pain, hand numbness Reason for referral: Evaluate for Carpal Tunnel Syndrome versus ulnar neuropathy Procedure done: Bilateral upper extremities NCS/EMG Precautions and/or limitations: None The limb temperature was monitored continuously and remained between 32-36 degrees C during the performance of the NCS. Nerve Conduction Studies Anti Sensory Summary Table ?Stim Site NR Onset (ms) Norm Onset (ms) Peak (ms) Norm Peak (ms) O-P Amp (?V) Norm O-P Amp Site1 Site2 Delta-0 (ms) Dist (cm) John (m/s) Norm John (m/s) Left Median Anti Sensory (2nd Digit) Wrist ? 2.4 3.1 <3.6 66.6 >10 Wrist 2nd Digit 2.4 14.0 58 Right Median Anti Sensory (2nd Digit) Wrist ? 2.4 3.2 <3.6 71.9 >10 Wrist 2nd Digit 2.4 14.0 58 Left Radial Anti Sensory (Thumb) Forearm ? 1.8 2.3 <3.1 37.4 Forearm Thumb 1.8 0.0 Left Ulnar Anti Sensory (5th Digit) Wrist ? 2.3 3.0 <3.7 44.4 >15.0 Wrist 5th Digit 2.3 14.0 61 Right Ulnar Anti Sensory (5th Digit) Wrist ? 2.0 3.1 <3.7 49.4 >15.0 Wrist 5th Digit 2.0 14.0 70 Motor Summary Table ?Stim Site NR Onset (ms) Norm Onset (ms) O-P Amp (mV) Norm O-P Amp iAmp (mV) Amp (1st) (%) Site1 Site2 Delta-0 (ms) Dist (cm) John (m/s) Norm John (m/s) Left Median Motor (Abd Poll Brev) Wrist ? 3.8 <3.9 12.5 >4.5 14.7 100.0 Elbow Wrist 4.5 24.0 53 >45 Elbow ? 8.3 12.5 14.7 100.0 Right Median Motor (Abd Poll Brev) Wrist ? 3.4 <3.9 11.1 >4.5 12.6 100.0 Elbow Wrist 3.9 22.0 56 >45 Elbow ? 7.3 12.0 14.5 108.1 Left Ulnar Motor (Abd Dig Minimi) Wrist ? 2.7 <3.0 11.4 >5 15.7 100.0 B Elbow Wrist 3.7 23.0 62 >45 B Elbow ? 6.4 12.0 16.6 105.3 A Elbow B Elbow 1.6 10.0 63 >45 A Elbow ? 8.0 11.8 16.3 103.5 Right Ulnar Motor (Abd Dig Minimi) Wrist ? 2.7 <3.0 11.3 >5 13.9 100.0 B Elbow Wrist 3.8 23.5 62 >45 B Elbow ? 6.5 11.5 13.8 101.8 A Elbow B Elbow 1.3 10.0 77 >45 A Elbow ? 7.8 11.8 13.9 104.4 EMG ?Side Muscle Nerve Root Ins Act Fibs Psw Amp Dur Poly Recrt Int Pat Comment Right 1stDorInt Ulnar C8-T1 Nml Nml Nml Nml Nml 0 Nml Complete Right FlexCarRad Median C6-7 Nml Nml Nml Nml Nml 0 Nml Complete Right Biceps Musculocut C5-6 Nml Nml Nml Nml Nml 0 Nml Complete Right Triceps Radial C6-7-8 Nml Nml Nml Nml Nml 0 Nml Complete Right Deltoid Axillary C5-6 Nml Nml Nml Nml Nml 0 Nml Complete Left 1stDorInt Ulnar C8-T1 Nml Nml Nml Nml Nml 0 Nml Complete Left FlexCarRad Median C6-7 Nml Nml Nml Nml Nml 0 Nml Complete Left Biceps Musculocut C5-6 Nml Nml Nml Nml Nml 0 Nml Complete Left Triceps Radial C6-7-8 Nml Nml Nml Nml Nml 0 Nml Complete Left Deltoid Axillary C5-6 Nml Nml Nml Nml Nml 0 Nml Complete FINDINGS: All motor and sensory nerves tested showed normal latencies, amplitudes and conduction velocities. Concentric needle EMG was performed in selected muscles of the bilateral upper extremities. Study did not reveal signs of electric abnormalities as shown in the table above. IMPRESSION: 1. This is a normal study. 2. There is no electrodiagnostic evidence for median neuropathy, ulnar neuropathy, brachial plexopathy, or cervical radiculopathy. Thank you for your kind referral. Ruth Borges MD, EMILY Board Certified, [place] Board of [employer] Medicine and Rehabilitation (ABPMR) Board Certified, [place] Board of Electrodiagnostic Medicine (ABEM) CODIN [phone] MTDD
--- OUTSIDE RECORDS SUMMARY | 2024-11-29 16:55 | XMS_ITS | Patient Health Record ---
Author Organization [facility] Address [address] [place] [address] Care Team Providers Care Manager Recruiting Name Role Phone Lizbeth GIBSON, Paul Primary Care Provider UnavailPuma Guo Jr Unavailable ALLERGIES Allergen (clinical drug ingredient) [...] Problem Diarrhea, unspecified type (R19.7) Active confirmed [id number] Problem Rectal bleeding (K62.5) Active confirmed [id number] PLAN OF TREATMENT Future Test Test Name Order Date COLONOSCOPY 04/01/2022 Insurance Providers Payer Name Payer Address Payer Phone Subscriber Number Group Number Insured Name Patient Relationship to Insured Coverage Start Date Coverage End Date [facility] [address] [address] [place], [place] [id number] [phone] [id number] LUBNA AHN Self - patient is the insured MEDICAID OF [facility] [address] [place] [address] [phone] [id number] LUBNA AHN Self - patient is the insured MEDICAL (GENERAL) HISTORY Medical History History ICD Code Denies ND,DM,CVA,Lung disease,renal dise ase Surgical History Surgery Date(Month/Year) appendectomy adenoidectomy
== END 2024-11-29 15:29 | disposition home or self-care (01) ==
LOC: HO.NEURO 15:28
PROVIDERS: PCP Nurse Practitioner Family; Visit Provider Physical Medicine & Rehabilitation
DX: M54.12 Radiculopathy, cervical region (principal); R20.0 Anesthesia of skin
CPT/HCPCS: 95886; 95911

== ENCOUNTER → 2024-11-29 15:31 | Outpatient (BNV) | payer OTHER, SELFPAY | PROVIDERS: PCP Nurse Practitioner Family; Visit Provider Physical Medicine & Rehabilitation | DX: R20.0 Anesthesia of skin (principal) | CPT/HCPCS: 95886; 95911 ==

== ENCOUNTER 2025-02-14 12:06 | Outpatient (AMB) | payer OTHER, SELFPAY ==
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
== END 2025-02-14 14:17 | disposition home or self-care (01) ==
LOC: HO.HOS 12:06
PROVIDERS: PCP Nurse Practitioner Family; Visit Provider Physical Medicine & Rehabilitation
DX: M79.18 Myalgia, other site (principal); M54.2 Cervicalgia
CPT/HCPCS: 99213

== ENCOUNTER → 2025-02-14 12:06 | Outpatient (BNVA) | payer OTHER, SELFPAY | PROVIDERS: PCP Nurse Practitioner Family; Visit Provider Physical Medicine & Rehabilitation | DX: M79.18 Myalgia, other site (principal); M54.2 Cervicalgia | CPT/HCPCS: 99212 ==

== ENCOUNTER 2025-03-08 11:02 | Outpatient (AMB) | payer OTHER, SELFPAY ==
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
[2025-03-08 11:05] VITALS: BP 142/78; PULSE 103; RESP 16; O2SAT 99; BMI 32.6
--- OUTSIDE RECORDS SUMMARY | 2025-03-08 12:07 | XMS_ITS | Patient Health Record ---
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 Name Role Phone Lizbeth GIBSON, Paul Primary Care Provider Puma Masterson Jr Unavailable Allergies Allergen (clinical drug ingredient) Drug/Non Drug Allergy documented on EMR Reaction Allergy Type Onset Date Status Pollen Pollen Unknown Allergy Active Reason For Referral No Information Social History Tobacco Use: Social History Observation Description Date Details (start date - stop date) Former Smoker NA - NA Tobacco Use/Smoking Question Answer Notes Patient is [...] Never (0 point) Points 2 Interpretation Negative Section Notes: occasional beer or glass of wine Problems Problem Type SNOMED Code ICD Code Onset Dates Problem Status W/U Status Risk Notes Problem 38256329 Rectal bleeding (K62.5) Active confirmed Problem [id number] Diarrhea, unspecified type (R19.7) Active confirmed Plan Of Treatment Future Test Test Name Order Date COLONOSCOPY 04/01/2022 Insurance Providers Payer Name Payer Address Payer Phone Subscriber Number Group Number Insured Name Patient Relationship to Insured Coverage Start Date Coverage End Date [facility] [address] [address] [place], [place] [id number] LUBNA AHN Self - patient is the insured MEDICAID OF [facility] [address] [place] [address] [phone] [id number] LUBNA AHN Self - patient is the insured Medical (General) History Medical History History ICD Code Denies OR,DM,CVA,Lung disease,renal dise ase Surgical History Surgery Date(Month/Year) appendectomy adenoidectomy
== END 2025-03-08 11:35 | disposition home or self-care (01) ==
LOC: HO.PMC 11:02
PROVIDERS: PCP Nurse Practitioner Family; Referring Provider Physical Medicine & Rehabilitation; Visit Provider Internal Medicine
DX: M54.2 Cervicalgia (principal); M54.12 Radiculopathy, cervical region
CPT/HCPCS: 99204

== ENCOUNTER → 2025-03-08 11:02 | Outpatient (BNVA) | payer OTHER, SELFPAY | PROVIDERS: PCP Nurse Practitioner Family; Referring Provider Physical Medicine & Rehabilitation; Visit Provider Internal Medicine | DX: M54.12 Radiculopathy, cervical region (principal) | CPT/HCPCS: 99202 ==